=== PATIENT | male | born 1980 | race African-American/Black ===

== ENCOUNTER 2017-12-23 18:04 | Inpatient (IN) | payer OTHER ==
[2017-12-23 18:24] VITALS: BMI 29.5
--- NOTE | 2017-12-23 19:57 | HP ---
CIWA Score - CIWA Score Nausea/Vomitin-No Nausea/No Vomiting Muscle Tremors: 2 Anxiety: 2 Agitation: 3 Paroxysmal Sweats: 2 Orientation: 0-Oriented Tacttile Disturbances: 0-None Auditory Disturbances: 0-None Visual Disturbances: 0-None Headache: 0-None Present CIWA-Ar Total Score: 9 Admission ROS S - HPI Chief Complaint: alcohol withdrawal symptoms Allergies/Adverse Reactions: Allergies Allergy/AdvReac Type Severity Reaction Status Date / Time No Known Allergies Allergy Verified 12/23/17 19:34 History of Present Illness: 37 yo male with hx of alcohol, cocaine and nicotine dependence is her seeking detox. Last detox at [facility] four months ago. PMHX: NV x 2 ( no meds), depression. Denies suicidal / homicidal ideation or hx of suicide attempt. Denies hx of seizures, reports hx of blackouts, last episode yesterday. Longest period of sobriety 3 years while incarcerated. Exam Limitations: No Limitations - Ebola screening Have you been sick,other than usual withdrawal symptoms: No - Review of Systems Constitutional: Loss of Appetite, Changes in sleep (x 3 - 4 days), Unintentional Wgt. Loss (8 lb over a week) EENT: reports: No Symptoms Reported Respiratory: reports: No Symptoms reported Cardiac: reports: No Symptoms Reported GI: reports: Poor Appetite, Poor Fluid Intake : reports: No Symptoms Reported Musculoskeletal: reports: Back Pain Integumentary: reports: No Symptoms Reported Neuro: reports: See HPI Endocrine: reports: Increased Thirst Hematology: reports: No Symptoms Reported Psychiatric: reports: Orientated x3, Depressed Other Systems: Reviewed and Negative Patient History - Patient Medical History Hx Anemia: No Hx Asthma: No Hx Chronic Obstructive Pulmonary Disease (COPD): No Hx Cancer: No Hx Cardiac Disorders: Yes (hx NV 2009 and 2012) Hx Congestive Heart Failure: No Hx Hypertension: No Hx Hypercholesterolemia: No Hx Pacemaker: No HX Cerebrovascular Accident: No Hx Seizures: No Hx Dementia: No Hx Diabetes: No Hx Gastrointestinal Disorders: No Hx Liver Disease: No Hx Genitourinary Disorders: No Hx Sexually Transmitted Disorders: No Hx Renal Disease (ESRD): No Hx Thyroid Disease: No Hx Human Immunodeficiency Virus (HIV): No Hx Hepatitis C: No Hx Depression: Yes Hx Suicide Attempt: No Hx Bipolar Disorder: No Hx Schizophrenia: No - Patient Surgical History Past Surgical History: Yes Hx Neurologic Surgery: No Hx Cataract Extraction: No Hx Cardiac Surgery: No Hx Lung Surgery: No Hx Breast Surgery: No Hx Breast Biopsy: No Hx Abdominal Surgery: No Hx Appendectomy: No Hx Cholecystectomy: No Hx Genitourinary Surgery: No Hx Section: No Hx Orthopedic Surgery: Yes (left knee arthroscopy ) Anesthesia Reaction: No - PPD History Previous Implant?: Yes Documented Results: Negative w/proof Implanted On Prior [facility] Admission?: Yes Date: 09/11/15 PPD to be Administered?: Yes - Smoking Cessation Smoking history: Current every day smoker Have you smoked in the past 12 months: Yes Aproximately how many cigarettes per day: 10 Hx Chewing Tobacco Use: No Initiated information on smoking cessation: Yes 'Breaking Loose' booklet given: 12/23/17 - Substance & Tx. History Hx Alcohol Use: Yes Hx Substance Use: Yes Substance Use Type: Alcohol Hx Substance Use Treatment: Yes ([facility] 4 months ago) - Substances Abused Alcohol Route: Oral Frequency: Daily Amount used: Rum - 2 pints, Beer - (1) 6pk Age of first use: 12 Date of Last Use: 12/23/17 Cocaine Route: Smoking Frequency: Daily Amount used: $100 Age of first use: 30 Date of Last Use: 12/23/17 Family Disease History - Family Disease History Family Disease History: Other: Father (crack / cocaine), Mother (crack/cocaine ) Admission Physical Exam BHS - Vital Signs Vital Signs: Vital Signs - 24 hr 12/23/17 18:22 Temperature 97.6 F Pulse Rate 76 Respiratory 21 Rate Blood Pressure 147/82 - Physical General Appearance: Yes: Nourished, Appropriately Dressed, Irritable HEENTM: Yes: Hearing grossly Normal, Normal ENT Inspection, Normocephalic, Normal Voice, AROLDO, Pharynx Normal, Tm's normal Respiratory: Yes: Chest Non-Tender, Lungs Clear, Normal Breath Sounds, No Respiratory Distress, No Accessory Muscle Use Neck: Yes: Within Normal Limits Breast: Yes: Breast Exam Deferred Cardiology: Yes: Regular Rhythm, Regular Rate, Murmur Abdominal: Yes: Normal Bowel Sounds, Non Tender, Flat, Soft Genitourinary: Yes: Within Normal Limits Back: Yes: Normal Inspection Musculoskeletal: Yes: full range of Motion, Gait Steady, Pelvis Stable, Back pain Extremities: Yes: Normal Capillary Refill, Normal Inspection, Normal Range of Motion, Non-Tender Neurological: Yes: Within Normal Limits Integumentary: Yes: Normal Color, Warm, Moist Lymphatic: Yes: Within Normal Limits - Diagnostic (1) Murmur, cardiac Current Visit: Yes Status: Acute (2) Alcohol dependence with withdrawal Current Visit: Yes Status: Acute Qualifiers: Complication of substance-induced condition: uncomplicated Qualified Code(s ): F10.230 - Alcohol dependence with withdrawal, uncomplicated (3) Back pain Current Visit: Yes Status: Acute Qualifiers: Back pain location: low back pain (4) Nicotine dependence Current Visit: Yes Status: Acute Qualifiers: Nicotine product type: cigarettes (5) Cocaine dependence, uncomplicated Current Visit: Yes Status: Acute (6) Depressed mood Current Visit: Yes Status: Acute Cleared for Admission [facility] - Detox or Rehab [facility] Level of Care: Medically Supervised Detox Regimen/Protocol: Librium [facility] Breath Alcohol Content Breath Alcohol Content: 0 Urine Drug Screen - Results Drug Screen Negative: No Urine Drug Screen Results: NAFISA-Cocaine
[2017-12-23] MEDS ORDERED: P-EPHED 60MG/TRIPROLIDI 2.5MG TABLET PO PRN (20:00)
[2017-12-23] MEDS ORDERED: MAGNESIUM HYDROX 2400MG/30ML ORAL SUSPENSION 30 ML CUP PO PRN (20:00)
[2017-12-23] MEDS ORDERED: ACETAMINOPHEN 325 MG TABLET (FP) PO PRN (20:00)
[2017-12-23] MEDS ORDERED: MENTHOL/PHENOL 1 EACH UD MM PRN (20:00)
[2017-12-23] MEDS ORDERED: MAG HYDROX/AL HYDROX/SIMETH 30 ML UNIT-DOSE CUP PO PRN (20:00)
[2017-12-23] MEDS ORDERED: NICOTINE POLACRILEX 2 MG GUM BC PRN (20:00)
[2017-12-23] MEDS ORDERED: IBUPROFEN 400 MG TABLET (FP) PO PRN (20:00)
[2017-12-23] MEDS ORDERED: guaiFENesin/D-METHORPHAN HB 10 ML UNIT-DOSE CUPS PO PRN (20:00)
[2017-12-23] MEDS ORDERED: hydrOXYzine PAMOATE 50 MG CAPSULE (FP) PO PRN (20:00)
[2017-12-23] MEDS ORDERED: chlordiazePOXIDE HCL 25 MG CAPSULE PO PRN (20:00)
[2017-12-23] MEDS ORDERED: LOPERAMIDE HCL 2 MG CAPSULE PO PRN (20:00)
[2017-12-23] MEDS ORDERED: MAGNESIUM CITRATE 300 ML BOTTLE PO PRN (20:00)
[2017-12-23] MEDS ORDERED: chlordiazePOXIDE HCL 25 MG CAPSULE PO ONE (21:45)
[2017-12-23] MEDS ORDERED: MELATONIN 5 MG TABLETS PO PRN (22:00)
[2017-12-23] MEDS: chlordiazePOXIDE HCL 25 MG CAPSULE PO SCH (23:16)
[2017-12-23] MEDS: THIAMINE HCL 100 MG TABLET (FP) PO SCH (23:17)
[2017-12-24 02:21] LABS: URINE APPEARANCE CLEAR; URINE BILIRUBIN NEGATIVE (<2.0 mg/dL); URINE COLOR YELLOW; URINE GLUCOSE (UA) NEGATIVE (NEGATIVE); URINE KETONE TRACE (NEGATIVE); URINE LEUK ESTERASE NEGATIVE (NEGATIVE); URINE NITRITE NEGATIVE (NEGATIVE); URINE PROTEIN NEGATIVE (NEGATIVE); URINE UROBILINOGEN 4.0 E.U/dl mg/dL (0.2-1.0)
[2017-12-24] MEDS: chlordiazePOXIDE HCL 25 MG CAPSULE PO SCH ×4 (06:20→22:23)
--- NOTE | 2017-12-24 09:01 | EKG ---
Test Reason : Blood Pressure : / mmHG Vent. Rate : 071 BPM Atrial Rate : 071 BPM P-R Int : 174 ms QRS Dur : 094 ms QT Int : 420 ms P-R-T Axes : 056 053 123 degrees QTc Int : 456 ms NORMAL SINUS RHYTHM ABNORMAL ECG NO PREVIOUS ECGS AVAILABLE Confirmed by ROLAN NASCIMENTO MD ([id number]) on 12/24/2017 9:01:26 AM Referred By: Confirmed By:ROLAN NASCIMENTO MD
[2017-12-24 09:54] LABS: HEMATOCRIT 39.3 % (35.4-49); MCH 27.6 pg (25.7-33.7); MEAN CELL VOLUME 83.6 fl (80-96); MEAN PLT VOLUME 8.9 fl (7.5-11.1); PLATELET COUNT 220 K/MM3 (134-434); RDW 15.1 % (11.9-15.9); WHITE BLOOD COUNT 6.8 K/mm3 (4.0-10.0)
[2017-12-24 10:21] LABS: ALBUMIN 3.4 g/dl (3.4-5.0); ANION GAP 8 (8-16); CALCIUM 8.2 mg/dL (8.5-10.1); CHLORIDE 108 mmol/L (98-107); CO2 28 mmol/L (21-32); CREATININE 1.1 mg/dL (0.7-1.3); GLUCOSE,RANDOM 86 mg/dL (74-106); POTASSIUM 4.4 mmol/L (3.5-5.1); SGOT/AST 29 U/L (15-37); SGPT/ALT 30 U/L (12-78); SODIUM 144 mmol/L (136-145)
[2017-12-24 10:28] LABS: ALK PHOS 45 U/L (45-117); BILIRUBIN,TOTAL 0.3 mg/dL (0.2-1.0); BLOOD UREA NITROGEN 14 mg/dL (7-18); TOT PROT 6.5 g/dl (6.4-8.2)
--- NOTE | 2017-12-24 10:40 | PN ---
S CIWA - CIWA Score Nausea/Vomitin-No Nausea/No Vomiting Muscle Tremors: 4-Moderate,w/Arms Extend Anxiety: 4-Mod. Anxious/Guarded Agitation: 4-Moderately Restless Paroxysmal Sweats: 1-Minimal Palms Moist Orientation: 0-Oriented Tacttile Disturbances: 0-None Auditory Disturbances: 0-None Visual Disturbances: 0-None Headache: 0-None Present CIWA-Ar Total Score: 13 BHS Progress Note (SOAP) Subjective: ANXIETY,TREMORS,SWEATS,FATIGUE. Objective: 12/24/17 10:40 Vital Signs 12/24/17 12/24/17 03:30 06:00 Temperature 97.5 F L Pulse Rate 66 Respiratory 18 18 Rate Blood Pressure 133/67 Laboratory Tests 12/24/17 12/24/17 12/24/17 00:33 07:00 07:00 WBC 6.8 D RBC 4.70 Hgb 13.0 Hct 39.3 MCV 83.6 MCH 27.6 MCHC 33.0 RDW 15.1 Plt Count 220 MPV 8.9 Sodium 144 Potassium 4.4 Chloride 108 H Carbon Dioxide 28 Anion Gap 8 BUN 14 Creatinine 1.1 D Creat Clearance w eGFR > 60 Random Glucose 86 Calcium 8.2 L Total Bilirubin 0.3 D AST 29 D ALT 30 Alkaline Phosphatase 45 Total Protein 6.5 Albumin 3.4 Urine Color Yellow Urine Appearance Clear Urine pH 5.0 Ur Specific [place] 1.027 Urine Protein Negative Urine Glucose (UA) Negative Urine Ketones Trace H Urine Blood Negative Urine Nitrite Negative Urine Bilirubin Negative Urine Urobilinogen 4.0 e.u/dl Ur Leukocyte Esterase Negative Assessment: 12/24/17 10:40 WITHDRAWAL SX Plan: CONTINUE DETOX INCREASE PO FLUIDS
[2017-12-24] MEDS: PRENATAL VITAMINS W/ FOLIC ACID TABLET (FP) PO SCH (11:41)
[2017-12-24] MEDS: NICOTINE 14 MG/24 HOURS TOPICAL PATCH TD SCH (11:42)
--- NOTE | 2017-12-24 14:07 | CONSULT ---
[facility] Psychiatric Consult - Data Date of interview: 12/24/17 Admission source: [facility] Identifying data: Patient is a 37 year old male single male, without kids, unemployed (denies receiving financial assistance) and currently homeless. This is one of multiple admissions for patient. Patient admitted to for alcohol and cocaine dependence. Substance Abuse History: - Smoking Cessation. Smoking history: Current every day smoker. Have you smoked in the past 12 months: Yes. Aproximately how many cigarettes per day: 10. Hx Chewing Tobacco Use: No. Initiated information on smoking cessation: Yes. 'Breaking Loose' booklet given: 12/23/17. - Substance & Tx. History. Hx Alcohol Use: Yes. Hx Substance Use: Yes. Substance Use Type : Alcohol. Hx Substance Use Treatment: Yes ([facility] 4 months ago). - Substances Abused. Alcohol. Route: Oral. Frequency: Daily. Amount used: Rum - 2 pints, Beer - (1) 6pk. Age of first use: 12. Date of Last Use: 12/23/17. Cocaine. Route: Smoking. Frequency: Daily. Amount used: $100. Age of first use: 30. Date of Last Use: 12/23/17 Medical History: hx [place] 2009 and 2012, left knee arthroscopy Psychiatric History: Pt. presents as mildly irritable. Patient denies h/o psychiatric hospitalizations. Pt reports h/o OPD for the previous six months. Reports seeing his psychiatrist several times within the previous six months and is prescribed seroquel but is non compliant with his medication regime. Pt. is not interested in accepting psychotropic medications. Pt. denies h/o suicide attempt. Physical/Sexual Abuse/Trauma History: Denies. Mental Status Exam - Mental Status Exam Alert and Oriented to: Time, Place, Person Cognitive Function: Good Patient Appearance: Well Groomed Mood: Withdrawn Patient Behavior: Fatigued, Guarded Speech Pattern: Delayed Voice Loudness: Moderately Soft/Quiet Thought Process: Goal Oriented Hallucinations: Denies Suicidal Ideation: Denies Homicidal Ideation: Denies Insight/Judgement: Poor Sleep: Fair Muscle strength/Tone: Normal Gait/Station: Normal Psychiatric Findings - Problem List ([place] 1, 2,3) (1) Alcohol dependence with withdrawal Current Visit: Yes Status: Acute Qualifiers: Complication of substance-induced condition: uncomplicated Qualified Code(s ): F10.230 - Alcohol dependence with withdrawal, uncomplicated (2) Cocaine dependence, uncomplicated Current Visit: Yes Status: Acute (3) Murmur, cardiac Current Visit: Yes Status: Acute (4) Nicotine dependence Current Visit: Yes Status: Acute Qualifiers: Nicotine product type: cigarettes Substance use status: in withdrawal Qualified Code(s): F17.213 - Nicotine dependence, cigarettes, with withdrawal (5) Back pain Current Visit: Yes Status: Chronic Qualifiers: Back pain location: low back pain (6) Substance induced mood disorder Current Visit: Yes Status: Acute - Initial Treatment Plan Initial Treatment Plan: Psychoeducation provided. Detoxification in progress. Observation.
[2017-12-24] MEDS: THIAMINE HCL 100 MG TABLET (FP) PO SCH (22:22)
[2017-12-25] MEDS: chlordiazePOXIDE HCL 25 MG CAPSULE PO SCH ×3 (06:03→18:29)
[2017-12-25] MEDS: PRENATAL VITAMINS W/ FOLIC ACID TABLET (FP) PO SCH (10:52)
[2017-12-25] MEDS: NICOTINE 14 MG/24 HOURS TOPICAL PATCH TD SCH (10:52)
--- NOTE | 2017-12-25 11:57 | PN ---
S CIWA - CIWA Score Nausea/Vomitin Muscle Tremors: 2 Anxiety: 2 Agitation: 2 Paroxysmal Sweats: 2 Orientation: 0-Oriented Tacttile Disturbances: 0-None Auditory Disturbances: 0-None Visual Disturbances: 1-Very Mild Sensitivity Headache: 2-Mild CIWA-Ar Total Score: 13 S Progress Note (SOAP) Subjective: Muscle aches, sleep interruptions, tremors Objective: 12/25/17 11:56 Vital Signs - 8 hr 12/25/17 12/25/17 06:36 10:36 Temperature 97.5 F L 98.1 F Pulse Rate 63 86 Respiratory 20 16 Rate Blood Pressure 134/73 145/86 Laboratory Last Values WBC 6.8 K/mm3 (4.0-10.0) D 12/24/17 07:00 RBC 4.70 M/mm3 (4.00-5.60) 12/24/17 07:00 Hgb 13.0 GM/dL (11.7-16.9) 12/24/17 07:00 Hct 39.3 % (35.4-49) 12/24/17 07:00 MCV 83.6 fl (80-96) 12/24/17 07:00 MCH 27.6 pg (25.7-33.7) 12/24/17 07:00 MCHC 33.0 g/dl (32.0-35.9) 12/24/17 07:00 RDW 15.1 % (11.9-15.9) 12/24/17 07:00 Plt Count 220 K/MM3 (134-434) 12/24/17 07:00 MPV 8.9 fl (7.5-11.1) 12/24/17 07:00 Sodium 144 mmol/L (136-145) 12/24/17 07:00 Potassium 4.4 mmol/L (3.5-5.1) 12/24/17 07:00 Chloride 108 mmol/L (98-107) H 12/24/17 07:00 Carbon Dioxide 28 mmol/L (21-32) 12/24/17 07:00 Anion Gap 8 (8-16) 12/24/17 07:00 BUN 14 mg/dL (7-18) 12/24/17 07:00 Creatinine 1.1 mg/dL (0.7-1.3) D 12/24/17 07:00 Creat Clearance w eGFR > 60 (>60) 12/24/17 07:00 Random Glucose 86 mg/dL (74-106) 12/24/17 07:00 Calcium 8.2 mg/dL (8.5-10.1) L 12/24/17 07:00 Total Bilirubin 0.3 mg/dL (0.2-1.0) D 12/24/17 07:00 AST 29 U/L (15-37) D 12/24/17 07:00 ALT 30 U/L (12-78) 12/24/17 07:00 Alkaline Phosphatase 45 U/L (45-117) 12/24/17 07:00 Total Protein 6.5 g/dl (6.4-8.2) 12/24/17 07:00 Albumin 3.4 g/dl (3.4-5.0) 12/24/17 07:00 Urine Color Yellow 12/24/17 00:33 Urine Appearance Clear 12/24/17 00:33 Urine pH 5.0 (5.0-8.0) 12/24/17 00:33 Ur Specific [place] 1.027 (1.001-1.035) 12/24/17 00:33 Urine Protein Negative (NEGATIVE) 12/24/17 00:33 Urine Glucose (UA) Negative (NEGATIVE) 12/24/17 00:33 Urine Ketones Trace (NEGATIVE) H 12/24/17 00:33 Urine Blood Negative (NEGATIVE) 12/24/17 00:33 Urine Nitrite Negative (NEGATIVE) 12/24/17 00:33 Urine Bilirubin Negative (<2.0 mg/dL) 12/24/17 00:33 Urine Urobilinogen 4.0 e.u/dl mg/dL (0.2-1.0) 12/24/17 00:33 Ur Leukocyte Esterase Negative (NEGATIVE) 12/24/17 00:33 RPR Titer Nonreactive (NONREACTIVE) 12/24/17 07:00 Labs noted Assessment: 12/25/17 11:57 Withdrawal sx Plan: Continue detox
[2017-12-25] MEDS: THIAMINE HCL 100 MG TABLET (FP) PO SCH (23:08)
[2017-12-25] MEDS: chlordiazePOXIDE 5 MG CAPSULE PO SCH (23:09)
[2017-12-26] MEDS: chlordiazePOXIDE 5 MG CAPSULE PO SCH ×3 (06:47→17:55)
[2017-12-26] MEDS: PRENATAL VITAMINS W/ FOLIC ACID TABLET (FP) PO SCH (11:13)
[2017-12-26] MEDS: NICOTINE 14 MG/24 HOURS TOPICAL PATCH TD SCH (11:13)
--- NOTE | 2017-12-26 13:52 | PN ---
BHS Progress Note (SOAP) Subjective: FEELING BETTER NO TREMOR LESS SWEAT Objective: 12/26/17 13:56 Vital Signs Temperature 98.4 F 12/26/17 13:16 Pulse Rate 71 12/26/17 13:16 Respiratory Rate 18 12/26/17 13:16 Blood Pressure 113/57 12/26/17 13:16 O2 Sat by Pulse Oximetry (%) Laboratory Last Values WBC 6.8 K/mm3 (4.0-10.0) D 12/24/17 07:00 RBC 4.70 M/mm3 (4.00-5.60) 12/24/17 07:00 Hgb 13.0 GM/dL (11.7-16.9) 12/24/17 07:00 Hct 39.3 % (35.4-49) 12/24/17 07:00 MCV 83.6 fl (80-96) 12/24/17 07:00 MCH 27.6 pg (25.7-33.7) 12/24/17 07:00 MCHC 33.0 g/dl (32.0-35.9) 12/24/17 07:00 RDW 15.1 % (11.9-15.9) 12/24/17 07:00 Plt Count 220 K/MM3 (134-434) 12/24/17 07:00 MPV 8.9 fl (7.5-11.1) 12/24/17 07:00 Sodium 144 mmol/L (136-145) 12/24/17 07:00 Potassium 4.4 mmol/L (3.5-5.1) 12/24/17 07:00 Chloride 108 mmol/L (98-107) H 12/24/17 07:00 Carbon Dioxide 28 mmol/L (21-32) 12/24/17 07:00 Anion Gap 8 (8-16) 12/24/17 07:00 BUN 14 mg/dL (7-18) 12/24/17 07:00 Creatinine 1.1 mg/dL (0.7-1.3) D 12/24/17 07:00 Creat Clearance w eGFR > 60 (>60) 12/24/17 07:00 Random Glucose 86 mg/dL (74-106) 12/24/17 07:00 Calcium 8.2 mg/dL (8.5-10.1) L 12/24/17 07:00 Total Bilirubin 0.3 mg/dL (0.2-1.0) D 12/24/17 07:00 AST 29 U/L (15-37) D 12/24/17 07:00 ALT 30 U/L (12-78) 12/24/17 07:00 Alkaline Phosphatase 45 U/L (45-117) 12/24/17 07:00 Total Protein 6.5 g/dl (6.4-8.2) 12/24/17 07:00 Albumin 3.4 g/dl (3.4-5.0) 12/24/17 07:00 Urine Color Yellow 12/24/17 00:33 Urine Appearance Clear 12/24/17 00:33 Urine pH 5.0 (5.0-8.0) 12/24/17 00:33 Ur Specific [place] 1.027 (1.001-1.035) 12/24/17 00:33 Urine Protein Negative (NEGATIVE) 12/24/17 00:33 Urine Glucose (UA) Negative (NEGATIVE) 12/24/17 00:33 Urine Ketones Trace (NEGATIVE) H 12/24/17 00:33 Urine Blood Negative (NEGATIVE) 12/24/17 00:33 Urine Nitrite Negative (NEGATIVE) 12/24/17 00:33 Urine Bilirubin Negative (<2.0 mg/dL) 12/24/17 00:33 Urine Urobilinogen 4.0 e.u/dl mg/dL (0.2-1.0) 12/24/17 00:33 Ur Leukocyte Esterase Negative (NEGATIVE) 12/24/17 00:33 RPR Titer Nonreactive (NONREACTIVE) 12/24/17 07:00 LAB NOTED Assessment: 12/26/17 13:56 MILD WITHDRAWAL SX HIV PAIN MANAGEMENT Plan: MEDICALLY SUPERVISED DETOX DISCUSS ADHERENCE WITH ART AND FOLLOW UP WITH INFECTION DISEASE
[2017-12-27] MEDS: chlordiazePOXIDE HCL 10 MG CAPSULE PO SCH (08:43)
[2017-12-27] MEDS: THIAMINE HCL 100 MG TABLET (FP) PO SCH (08:43)
[2017-12-27 11:19] VITALS: BP 148/75; PULSE 78; TEMP 97.2
--- NOTE | 2017-12-27 12:52 | PN ---
S Progress Note (SOAP) Subjective: ALERT,NO COMPLAINT Objective: 12/27/17 12:51 Vital Signs Temperature 97.2 F L 12/27/17 11:18 Pulse Rate 78 12/27/17 11:18 Respiratory Rate 20 12/27/17 11:18 Blood Pressure 148/75 12/27/17 11:18 O2 Sat by Pulse Oximetry (%) Assessment: 12/27/17 12:51 DETOX COMPLETED,NO WITHDRAWAL SYMPTOM Plan: DISCHARGE TODAY,FOLLOW UP WITH AFTER CARE PROGRAM ARRANGEMENT
--- NOTE | 2017-12-27 12:59 | DS ---
[facility] Detox Discharge Summary Admission Date: 12/23/17 Discharge Date: 12/27/17 - History Present History: Alcohol Dependence, Cocaine Dependence Additional Comments: FOLLOW UP WITH [facility] Pertinent Past History: HIV - Physical Exam Results Vital Signs: Vital Signs Temperature 97.2 F L 12/27/17 11:18 Pulse Rate 78 12/27/17 11:18 Respiratory Rate 20 12/27/17 11:18 Blood Pressure 148/75 12/27/17 11:18 O2 Sat by Pulse Oximetry (%) Pertinent Admission Physical Exam Findings: WITHDRAWAL SIGNS AND SYMPTOM Vital Signs Temperature 97.2 F L 12/27/17 11:18 Pulse Rate 78 12/27/17 11:18 Respiratory Rate 20 12/27/17 11:18 Blood Pressure 148/75 12/27/17 11:18 O2 Sat by Pulse Oximetry (%) Laboratory Last Values WBC 6.8 K/mm3 (4.0-10.0) D 12/24/17 07:00 RBC 4.70 M/mm3 (4.00-5.60) 12/24/17 07:00 Hgb 13.0 GM/dL (11.7-16.9) 12/24/17 07:00 Hct 39.3 % (35.4-49) 12/24/17 07:00 MCV 83.6 fl (80-96) 12/24/17 07:00 MCH 27.6 pg (25.7-33.7) 12/24/17 07:00 MCHC 33.0 g/dl (32.0-35.9) 12/24/17 07:00 RDW 15.1 % (11.9-15.9) 12/24/17 07:00 Plt Count 220 K/MM3 (134-434) 12/24/17 07:00 MPV 8.9 fl (7.5-11.1) 12/24/17 07:00 Sodium 144 mmol/L (136-145) 12/24/17 07:00 Potassium 4.4 mmol/L (3.5-5.1) 12/24/17 07:00 Chloride 108 mmol/L (98-107) H 12/24/17 07:00 Carbon Dioxide 28 mmol/L (21-32) 12/24/17 07:00 Anion Gap 8 (8-16) 12/24/17 07:00 BUN 14 mg/dL (7-18) 12/24/17 07:00 Creatinine 1.1 mg/dL (0.7-1.3) D 12/24/17 07:00 Creat Clearance w eGFR > 60 (>60) 12/24/17 07:00 Random Glucose 86 mg/dL (74-106) 12/24/17 07:00 Calcium 8.2 mg/dL (8.5-10.1) L 12/24/17 07:00 Total Bilirubin 0.3 mg/dL (0.2-1.0) D 12/24/17 07:00 AST 29 U/L (15-37) D 12/24/17 07:00 ALT 30 U/L (12-78) 12/24/17 07:00 Alkaline Phosphatase 45 U/L (45-117) 12/24/17 07:00 Total Protein 6.5 g/dl (6.4-8.2) 12/24/17 07:00 Albumin 3.4 g/dl (3.4-5.0) 12/24/17 07:00 Urine Color Yellow 12/24/17 00:33 Urine Appearance Clear 12/24/17 00:33 Urine pH 5.0 (5.0-8.0) 12/24/17 00:33 Ur Specific [place] 1.027 (1.001-1.035) 12/24/17 00:33 Urine Protein Negative (NEGATIVE) 12/24/17 00:33 Urine Glucose (UA) Negative (NEGATIVE) 12/24/17 00:33 Urine Ketones Trace (NEGATIVE) H 12/24/17 00:33 Urine Blood Negative (NEGATIVE) 12/24/17 00:33 Urine Nitrite Negative (NEGATIVE) 12/24/17 00:33 Urine Bilirubin Negative (<2.0 mg/dL) 12/24/17 00:33 Urine Urobilinogen 4.0 e.u/dl mg/dL (0.2-1.0) 12/24/17 00:33 Ur Leukocyte Esterase Negative (NEGATIVE) 12/24/17 00:33 RPR Titer Nonreactive (NONREACTIVE) 12/24/17 07:00 - Treatment Hospital Course: Detox Protocol Followed, Detoxed Safely, Responded well, Discharged Condition Good, Rehab Referral Accepted Patient has Accepted a Rehab Referral to: [facility] - Medication Discharge Medications: Ambulatory Orders Aspirin [ASA -] 81 mg PO DAILY 09/09/15 Quetiapine Fumarate [Seroquel -] 100 mg PO HS 12/23/17 Atorvastatin Ca [Lipitor] 10 mg PO HS #30 tablet 12/26/17 Dolutegravir Sodium [Tivicay] 50 mg PO DAILY 12/26/17 Emtricitabine/Tenofovir (Tdf) [Truvada 200 mg-300 mg Tablet] 1 each PO DAILY
--- NOTE | 2017-12-27 22:18 | EKG ---
Test Reason : Blood Pressure : / mmHG Vent. Rate : 073 BPM Atrial Rate : 073 BPM P-R Int : 186 ms QRS Dur : 108 ms QT Int : 400 ms P-R-T Axes : 066 059 134 degrees QTc Int : 440 ms NORMAL SINUS RHYTHM ABNORMAL ECG WHEN COMPARED WITH ECG OF 23-DEC-2017 23:03, T WAVE INVERSION MORE EVIDENT IN LATERAL LEADS Confirmed by ADELINE BRADFORD MD ([id number]) on 12/27/2017 10:17:31 PM Referred By: Confirmed By:ADELINE BRADFORD MD
== END 2017-12-27 11:19 | disposition home or self-care (01) | DRG 774 ==
LOC: YASAS 18:04 → Y6N 21:34
PROVIDERS: ADMIT Family Medicine Addiction Medicine; ATTEND Family Medicine Addiction Medicine
PROC: HZ2ZZZZ Detoxification Services for Substance Abuse Treatment (ICD-10-PCS; principal; 2017-12-23)
DX: F10.230 Alcohol dependence with withdrawal, uncomplicated (principal); F14.20 Cocaine dependence, uncomplicated; F17.213 Nicotine dependence, cigarettes, with withdrawal; F19.24 Other psychoactive substance dependence with psychoactive substance-induced mood disorder; F32.9 Major depressive disorder, single episode, unspecified; R01.1 Cardiac murmur, unspecified; M54.5 Low back pain; I25.2 Old myocardial infarction
CPT/HCPCS: 36415; 80053; 81003; 85027; 86593; 93005; 93010

== ENCOUNTER 2018-03-10 14:50 | Inpatient (IN) | payer OTHER ==
[2018-03-10 16:00] VITALS: BMI 27.5
[2018-03-10] MEDS ORDERED: MAGNESIUM HYDROX 2400MG/30ML ORAL SUSPENSION 30 ML CUP PO PRN (19:36)
[2018-03-10] MEDS ORDERED: IBUPROFEN 400 MG TABLET (FP) PO PRN (19:36)
[2018-03-10] MEDS ORDERED: MENTHOL/PHENOL 1 EACH UD MM PRN (19:36)
[2018-03-10] MEDS ORDERED: MAG HYDROX/AL HYDROX/SIMETH 30 ML UNIT-DOSE CUP PO PRN (19:36)
[2018-03-10] MEDS ORDERED: NICOTINE POLACRILEX 4 MG GUM BC PRN (19:36)
[2018-03-10] MEDS ORDERED: MAGNESIUM CITRATE 300 ML BOTTLE PO PRN (19:36)
[2018-03-10] MEDS ORDERED: ACETAMINOPHEN 325 MG TABLET (FP) PO PRN (19:36)
[2018-03-10] MEDS ORDERED: LOPERAMIDE HCL 2 MG CAPSULE PO PRN (19:36)
[2018-03-10] MEDS ORDERED: P-EPHED 60MG/TRIPROLIDI 2.5MG TABLET PO PRN (19:36)
[2018-03-10] MEDS ORDERED: guaiFENesin/D-METHORPHAN HB 10 ML UNIT-DOSE CUPS PO PRN (19:36)
--- NOTE | 2018-03-10 19:36 | HP ---
Admission ROS [facility] Chief Complaint: I am here to go to rehab for treatment Allergies/Adverse Reactions: Allergies Allergy/AdvReac Type Severity Reaction Status Date / Time No Known Allergies Allergy Verified 03/10/18 18:26 History of Present Illness: pt was at [facility] for the past two days. Pt was d/c and now is here for rehab for further tx. Exam Limitations: No Limitations - Ebola screening Have you traveled outside of the country in the last 21 days: No Have you had contact with anyone from an Ebola affected area: No Have you been sick,other than usual withdrawal symptoms: No Do you have a fever: No - Review of Systems Constitutional: Chills, Loss of Appetite, Changes in sleep EENT: reports: No Symptoms Reported Respiratory: reports: No Symptoms reported Cardiac: reports: Syncope GI: reports: Poor Appetite, Poor Fluid Intake : reports: No Symptoms Reported Musculoskeletal: reports: Back Pain, Joint Pain, Muscle Pain Integumentary: reports: No Symptoms Reported Neuro: reports: No Symptoms reported Endocrine: reports: Excessive Sweating, Flushing, Intolerance to Cold, Intolerance to Heat Hematology: reports: No Symptoms Reported Psychiatric: reports: Judgement Intact, Mood/Affect Appropiate, Orientated x3, Agitated, Anxious Other Systems: Reviewed and Negative Patient History - Patient Medical History Hx Anemia: No Hx Asthma: No Hx Chronic Obstructive Pulmonary Disease (COPD): No Hx Cancer: No Hx Cardiac Disorders: Yes (hx DC 2009 and 2012) Hx Congestive Heart Failure: No Hx Hypertension: No Hx Hypercholesterolemia: No Hx Pacemaker: No HX Cerebrovascular Accident: No Hx Seizures: No Hx Dementia: No Hx Diabetes: No Hx Gastrointestinal Disorders: No Hx Liver Disease: No Hx Genitourinary Disorders: No Hx Sexually Transmitted Disorders: No Hx Renal Disease (ESRD): No Hx Thyroid Disease: No Hx Human Immunodeficiency Virus (HIV): Yes Hx Hepatitis C: No Hx Depression: Yes Hx Suicide Attempt: No Hx Bipolar Disorder: No Hx Schizophrenia: No - Patient Surgical History Past Surgical History: Yes Hx Neurologic Surgery: No Hx Cataract Extraction: No Hx Cardiac Surgery: No Hx Lung Surgery: No Hx Breast Surgery: No Hx Breast Biopsy: No Hx Abdominal Surgery: No Hx Appendectomy: No Hx Cholecystectomy: No Hx Genitourinary Surgery: No Hx Section: No Hx Orthopedic Surgery: Yes (left knee arthroscopy ) Anesthesia Reaction: No - PPD History Previous Implant?: Yes Documented Results: Negative w/o proof Date: 12/25/17 PPD to be Administered?: Yes - Reproductive History Patient is a Female of Child Bearing Age (11 -55 yrs old): No - Smoking Cessation Smoking history: Current every day smoker Have you smoked in the past 12 months: Yes Aproximately how many cigarettes per day: 10 Hx Chewing Tobacco Use: No Initiated information on smoking cessation: Yes 'Breaking Loose' booklet given: 03/10/18 - Substance & Tx. History Hx Alcohol Use: Yes Hx Substance Use: Yes Substance Use Type: Alcohol, Cocaine Hx Substance Use Treatment: No Family Disease History - Family Disease History Family Disease History: Other: Father (crack / cocaine), Mother (crack/cocaine ) Admission Physical Exam S - Vital Signs Vital Signs: Vital Signs - 24 hr 03/10/18 15:58 Temperature 97 F L Pulse Rate 83 Respiratory 18 Rate Blood Pressure 123/68 - Physical General Appearance: Yes: Appropriately Dressed, Moderate Distress, Anxious HEENTM: Yes: Hearing grossly Normal, Normal Voice Respiratory: Yes: Chest Non-Tender, Lungs Clear, Normal Breath Sounds, No Respiratory Distress Neck: Yes: No masses,lesions,Nodules Breast: Yes: Within Normal Limits Cardiology: Yes: Regular Rhythm, Regular Rate, S1, S2 Abdominal: Yes: Normal Bowel Sounds, Non Tender, Soft Genitourinary: Yes: Within Normal Limits Back: Yes: Normal Inspection Musculoskeletal: Yes: full range of Motion Extremities: Yes: Normal Capillary Refill, Normal Inspection, Non-Tender, Tremors Neurological: Yes: Fully Oriented, Alert, Normal Response Integumentary: Yes: Normal Color Lymphatic: Yes: Within Normal Limits - Diagnostic (1) Alcohol dependence with withdrawal Current Visit: No Status: Chronic Qualifiers: Complication of substance-induced condition: uncomplicated (2) Cocaine dependence, uncomplicated Current Visit: Yes Status: Chronic (3) Depressed mood Current Visit: Yes Status: Chronic (4) HIV (human immunodeficiency virus infection) Current Visit: No Status: Chronic (5) Nicotine dependence Current Visit: Yes Status: Chronic Qualifiers: Nicotine product type: cigarettes Substance use status: uncomplicated Qualified Code(s): F17.210 - Nicotine dependence, cigarettes, uncomplicated (6) Back pain Current Visit: Yes Status: Chronic Qualifiers: Back pain location: low back pain Back pain laterality: unspecified (7) Degenerative arthritis of knee, bilateral Current Visit: No Status: Chronic Cleared for Admission [facility] - Detox or Rehab [facility] Level of Care: Medically Managed [facility] Breath Alcohol Content Breath Alcohol Content: 0 Urine Drug Screen - Results Drug Screen Negative: No Urine Drug Screen Results: NAFISA-Cocaine, BAR-Barbiturates, BZO-Benzodiazepines Inpatient Rehab Admission - Initial Determination Are CD services needed?: Yes Free of communicable disease: Yes Not in need of hospitalization: Yes - Rehab Admission Criteria Poor recovery environment: Yes Comorbidities: Yes
[2018-03-10] MEDS ORDERED: TUBERCULIN PPD 5 TU/0.1ML VIAL ID ONE (23:04)
[2018-03-10] MEDS: THIAMINE HCL 100 MG TABLET (FP) PO SCH (23:05)
[2018-03-11 00:03] LABS: URINE APPEARANCE CLEAR; URINE BILIRUBIN NEGATIVE (<2.0 mg/dL); URINE COLOR YELLOW; URINE GLUCOSE (UA) NEGATIVE (NEGATIVE); URINE KETONE NEGATIVE (NEGATIVE); URINE LEUK ESTERASE NEGATIVE (NEGATIVE); URINE NITRITE NEGATIVE (NEGATIVE); URINE PROTEIN NEGATIVE (NEGATIVE); URINE UROBILINOGEN NEGATIVE mg/dL (0.2-1.0)
--- NOTE | 2018-03-11 09:27 | EKG ---
Test Reason : Blood Pressure : / mmHG Vent. Rate : 078 BPM Atrial Rate : 078 BPM P-R Int : 176 ms QRS Dur : 096 ms QT Int : 420 ms P-R-T Axes : 062 066 106 degrees QTc Int : 478 ms NORMAL SINUS RHYTHM PROLONGED QT ABNORMAL ECG WHEN COMPARED WITH ECG OF 24-DEC-2017 09:11, T WAVE INVERSION LESS EVIDENT IN LATERAL LEADS Confirmed by ROLAN NASCIMENTO MD ([id number]) on 03/11/2018 9:26:36 AM Referred By: Confirmed By:ROLAN NASCIMENTO MD
[2018-03-11 09:46] LABS: HEMATOCRIT 39.6 % (35.4-49); HEMOGLOBIN 12.7 GM/dL (11.7-16.9); MCH 26.3 pg (25.7-33.7); MCHC 32.2 g/dl (32.0-35.9); MEAN CELL VOLUME 81.6 fl (80-96); MEAN PLT VOLUME 8.7 fl (7.5-11.1); PLATELET COUNT 202 K/MM3 (134-434); RBC 4.85 M/mm3 (4.00-5.60); WHITE BLOOD COUNT 4.9 K/mm3 (4.0-10.0)
[2018-03-11 10:26] LABS: CHLORIDE 106 mmol/L (98-107); POTASSIUM 4.9 mmol/L (3.5-5.1); SODIUM 143 mmol/L (136-145)
[2018-03-11 10:34] LABS: ALBUMIN 3.3 g/dl (3.4-5.0); ALK PHOS 42 U/L (45-117); ANION GAP 5 MMOL/L (8-16); BILIRUBIN,TOTAL 0.2 mg/dL (0.2-1.0); BLOOD UREA NITROGEN 17 mg/dL (7-18); CALCIUM 8.4 mg/dL (8.5-10.1); CO2 32 mmol/L (21-32); CREATININE 1.3 mg/dL (0.7-1.3); GLUCOSE,RANDOM 85 mg/dL (74-106); SGOT/AST 27 U/L (15-37); SGPT/ALT 35 U/L (12-78); TOT PROT 6.4 g/dl (6.4-8.2)
[2018-03-11] MEDS: PRENATAL VITAMINS W/ FOLIC ACID TABLET (FP) PO SCH (10:43)
[2018-03-11] MEDS: NICOTINE 21 MG/24 HOURS TOPICAL PATCH TD SCH (10:43)
[2018-03-11] MEDS: THIAMINE HCL 100 MG TABLET (FP) PO SCH (22:10)
[2018-03-11] MEDS: MELATONIN 5 MG TABLETS PO PRN (22:10)
[2018-03-12] MEDS: PRENATAL VITAMINS W/ FOLIC ACID TABLET (FP) PO SCH (11:00)
[2018-03-12] MEDS: NICOTINE 21 MG/24 HOURS TOPICAL PATCH TD SCH (11:00)
--- NOTE | 2018-03-12 16:53 | HP ---
Psychiatrist Admission - Data Date of interview: 03/12/18 Admission source: Referral from [facility]. Identifying data: Readmission to [address] for this 38 y/o AA male seeking rehabilitation treatment for alcohol and cocaine dependence.Patient is single without dependents,homeless,unemployed and deprived of any source of income. 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 Psychiatric History: Patient denies history of psychiatric hospitalizations,OPD care or sucicide attempts. Physical/Sexual Abuse/Trauma History: Not discussed in this session.Patient endorses 15 years of homelessness. Additional Comment: Discussed in this interview.Details in current [facility] report : Smoking history: Current every day smoker. Have you smoked in the past 12 months: Yes. Aproximately how many cigarettes per day: 10. Hx Chewing Tobacco Use: No. Initiated information on smoking cessation: Yes. 'Breaking Loose' booklet given: 03/10/18. - Substance & Tx. History. Hx Alcohol Use: Yes. Hx Substance Use: Yes. Substance Use Type: Alcohol, Cocaine. Hx Substance Use Treatment: No Vital Signs: Vital Signs - 24 hr 03/12/18 03/12/18 03/12/18 00:30 03:30 07:12 Temperature Pulse Rate Respiratory 18 18 18 Rate Blood Pressure 03/12/18 07:13 Temperature 97.9 F Pulse Rate 70 Respiratory 18 Rate Blood Pressure 104/60 Allergies/Adverse Reactions: Allergies Allergy/AdvReac Type Severity Reaction Status Date / Time No Known Allergies Allergy Verified 03/10/18 18:26 - Substance Abuse/Tx History Hx Alcohol Use: Yes Hx Substance Use: Yes (smokes one pack of cigaretttes daily) Substance Use Type: Alcohol, Cocaine Mental Status Exam - Mental Status Exam Alert and Oriented to: Time, Place, Person Cognitive Function: Good Patient Appearance: Well Groomed (muscular built) Mood: Withdrawn, Hopeful, Irritable Affect: Mood Congruent, Normal Range Patient Behavior: Appropriate, Cooperative Speech Pattern: Clear Voice Loudness: Normal Thought Process: Intact, Goal Oriented Thought Disorder: Not Present Hallucinations: Denies Suicidal Ideation: Denies Homicidal Ideation: Denies Insight/Judgement: Poor Sleep: Well Appetite: Good Muscle strength/Tone: Normal Gait/Station: Normal Psychiatric Findings - Problem List ([place] 1, 2,3) (1) Alcohol dependence Status: Acute Comment: . (2) Cocaine dependence, uncomplicated Status: Acute Comment: . (3) Nicotine dependence Status: Acute Qualifiers: Nicotine product type: cigarettes Substance use status: uncomplicated Qualified Code(s): F17.210 - Nicotine dependence, cigarettes, uncomplicated Comment: . (4) Substance induced mood disorder Status: Acute Comment: . - Initial Treatment Plan Initial Treatment Plan: Psychoeducation.Support.Groups.AA meetings.Observation.
[2018-03-12] MEDS: THIAMINE HCL 100 MG TABLET (FP) PO SCH (21:42)
[2018-03-12] MEDS: MELATONIN 5 MG TABLETS PO PRN (21:42)
[2018-03-13] MEDS: PRENATAL VITAMINS W/ FOLIC ACID TABLET (FP) PO SCH (10:05)
[2018-03-13] MEDS: NICOTINE 21 MG/24 HOURS TOPICAL PATCH TD SCH (10:05)
[2018-03-13] MEDS: THIAMINE HCL 100 MG TABLET (FP) PO SCH (21:45)
[2018-03-13] MEDS: MELATONIN 5 MG TABLETS PO PRN (21:45)
[2018-03-14] MEDS: PRENATAL VITAMINS W/ FOLIC ACID TABLET (FP) PO SCH (10:23)
[2018-03-14] MEDS: NICOTINE 21 MG/24 HOURS TOPICAL PATCH TD SCH (10:23)
[2018-03-14] MEDS: THIAMINE HCL 100 MG TABLET (FP) PO SCH (21:46)
[2018-03-14] MEDS: MELATONIN 5 MG TABLETS PO PRN (21:46)
[2018-03-14] MEDS: hydrOXYzine PAMOATE 50 MG CAPSULE (FP) PO PRN (21:47)
[2018-03-15] MEDS: NICOTINE 21 MG/24 HOURS TOPICAL PATCH TD SCH (10:24)
[2018-03-15] MEDS: PRENATAL VITAMINS W/ FOLIC ACID TABLET (FP) PO SCH (10:24)
[2018-03-15] MEDS: THIAMINE HCL 100 MG TABLET (FP) PO SCH (21:32)
[2018-03-15] MEDS: MELATONIN 5 MG TABLETS PO PRN (21:32)
[2018-03-16] MEDS: NICOTINE 21 MG/24 HOURS TOPICAL PATCH TD SCH (11:08)
[2018-03-16] MEDS: PRENATAL VITAMINS W/ FOLIC ACID TABLET (FP) PO SCH (11:08)
[2018-03-16] MEDS: hydrOXYzine PAMOATE 50 MG CAPSULE (FP) PO PRN (21:45)
[2018-03-16] MEDS: THIAMINE HCL 100 MG TABLET (FP) PO SCH (21:45)
[2018-03-16] MEDS: MELATONIN 5 MG TABLETS PO PRN (21:45)
[2018-03-17] MEDS: PRENATAL VITAMINS W/ FOLIC ACID TABLET (FP) PO SCH (10:25)
[2018-03-17] MEDS: NICOTINE 21 MG/24 HOURS TOPICAL PATCH TD SCH (10:25)
--- NOTE | 2018-03-17 13:15 | PN ---
Psychiatric Progress Note Vital Signs: Vital Signs Period Temp Pulse Resp BP Sys/Frost Pulse Ox Last 24 Hr 97.8 F 65 18-18 114/61 Date of Session: 03/17/18 Chief Complaint:: Discharge Note HPI: Patient addressing Alcohol and Cocaine Dependence comorbid with Nicotine Dependence and Substance-InducedMood Disorder ROS: HIV, H/O Myocardial infarction Current Medications: Active Medications Generic Name Dose Route Start Last Admin Trade Name Freq PRN Reason Stop Dose Admin Acetaminophen 650 mg 03/10/18 19:36 Tylenol - PO Q4H PRN FEVER Al Hydroxide/Mg Hydroxide 30 ml 03/10/18 19:36 Mylanta Oral Suspension - PO Q6H PRN DYSPEPSIA Eucalyptus/Menthol/Phenol/Sorbitol 1 each 03/10/18 19:36 Cepastat Lozenge - MM Q4H PRN SORE THROAT Guaifenesin 10 ml 03/10/18 19:36 Robitussin Dm - PO Q6H PRN COUGH Hydroxyzine Pamoate 50 mg 03/10/18 19:36 03/16/18 21:45 Vistaril - PO 50 mg Q4H PRN Administration AGITATION Ibuprofen 400 mg 03/10/18 19:36 Motrin - PO Q6H PRN Pain level 4-6 Loperamide HCl 4 mg 03/10/18 19:36 Imodium - PO Q6H PRN DIARRHEA Magnesium Citrate 300 ml 03/10/18 19:36 Citroma - PO Q48H PRN CONSTIPATION Magnesium Hydroxide 30 ml 03/10/18 19:36 Milk Of Magnesia - PO DAILY PRN CONSTIPATION Melatonin 5 mg 03/10/18 22:00 03/16/18 21:45 Melatonin PO 5 mg HS PRN Administration INSOMNIA Nicotine 21 mg 03/11/18 10:00 03/17/18 10:25 Nicoderm Patch - TD Not Given DAILY ALFREDO Nicotine Polacrilex 4 mg 03/10/18 19:36 Nicorette Gum - BC Q2H PRN NICOTINE REPLACEMENT RX Multivit/Folic Acid/Iron 1 tab 03/11/18 10:00 03/17/18 10:25 Vitamins (Sjr) - PO 1 tab DAILY ALFREDO Administration Pseudoephedrine/Triprolidine 1 combo 03/10/18 19:36 Actifed - PO TID PRN NASAL CONGESTION Thiamine HCl 100 mg 03/10/18 22:00 03/16/18 21:45 Vitamin B1 - PO 100 mg HS ALFREDO Administration Current Side Effect: No Lab tests ordered: Yes Lab tests reviewed: Yes Provider note:: Patient will complete this program on 03/18/18. he has met his treatment goals and will continue to address his issues in [facility]. Told junior underwriter that from his participation in this program, he has learned the benefit of compliance with his treatment. He is stable for discharge on 03/18/18 Total face to face time:: 35 Mental Status Exam - Mental Status Exam Alert and Oriented to: Time, Place, Person Cognitive Function: Fair Patient Appearance: Well Groomed Mood: Hopeful, Euthymic Affect: Appropriate Patient Behavior: Cooperative Speech Pattern: Clear Voice Loudness: Normal Thought Process: Intact Thought Disorder: Not Present Hallucinations: Denies Suicidal Ideation: Denies Homicidal Ideation: Denies Insight/Judgement: Fair Sleep: Well Appetite: Good Muscle strength/Tone: Normal Gait/Station: Normal Psychiatric Treatment Plan - Problem List (1) Alcohol dependence Current Visit: Yes (2) Cocaine dependence Current Visit: Yes (3) Nicotine dependence Current Visit: Yes Qualifiers: Nicotine product type: cigarettes Substance use status: uncomplicated Qualified Code(s): F17.210 - Nicotine dependence, cigarettes, uncomplicated (4) Substance induced mood disorder Current Visit: Yes (5) Post DE syndrome Current Visit: No (6) HIV (human immunodeficiency virus infection) Current Visit: No Initial treatment plan: Patient will be discharged tomorrow and referred to [facility]
--- NOTE | 2018-03-17 15:55 | PN ---
[facility] Progress Note Note: Vital Signs Temperature 97.8 F 03/17/18 07:22 Pulse Rate 65 03/17/18 07:22 Respiratory Rate 18 03/17/18 07:22 Blood Pressure 114/61 03/17/18 07:22 O2 Sat by Pulse Oximetry (%) Patient medically stable, schedule to complete this program 03/18/18 will follow up with referral at [facility]. Patient to follow up with primary medical provider in 1 - 2 weeks.
[2018-03-17] MEDS: MELATONIN 5 MG TABLETS PO PRN (21:35)
[2018-03-17] MEDS: THIAMINE HCL 100 MG TABLET (FP) PO SCH (21:35)
[2018-03-17] MEDS: hydrOXYzine PAMOATE 50 MG CAPSULE (FP) PO PRN (21:36)
[2018-03-18 07:24] VITALS: BP 114/72; PULSE 72; TEMP 98.3
== END 2018-03-18 08:30 | disposition home or self-care (01) | DRG 772 ==
LOC: YASAS 14:50 → Y5N 17:57
PROVIDERS: ADMIT Psychiatry & Neurology Psychiatry; ATTEND Psychiatry & Neurology Psychiatry
PROC: HZ42ZZZ Group Counseling for Substance Abuse Treatment, Cognitive-Behavioral (ICD-10-PCS; principal; 2018-03-10)
DX: F10.20 Alcohol dependence, uncomplicated (principal); F14.20 Cocaine dependence, uncomplicated; F17.210 Nicotine dependence, cigarettes, uncomplicated; F19.24 Other psychoactive substance dependence with psychoactive substance-induced mood disorder; F32.9 Major depressive disorder, single episode, unspecified; Z21 Asymptomatic human immunodeficiency virus [HIV] infection status; M54.5 Low back pain; I25.2 Old myocardial infarction; M17.0 Bilateral primary osteoarthritis of knee
CPT/HCPCS: 36415; 80053; 81003; 85027; 86593; 87389; 93005; 93010

== ENCOUNTER 2019-05-03 15:30 | Inpatient (IN) | payer OTHER ==
[2019-05-03 16:44] VITALS: BMI 28.5
--- NOTE | 2019-05-03 17:12 | HP ---
CIWA Score - Admission Criteria OASAS Guidelines: Admission for Medically Managed Detox: Requires at least one of the followin. CIWA greater than 12 2. Seizures within the past 24 hours 3. Delirium tremens within the past 24 hours 4. Hallucinations within the past 24 hours 5. Acute intervention needed for co occurring medical disorder 6. Acute intervention needed for co occurring psychiatric disorder 7. Severe withdrawal that cannot be handled at a lower level of care (continued vomiting, continued diarrhea, abnormal vital signs) requiring intravenous medication and/or fluids 8. Admitting History and Physical - Admission Chief Complaint: alcohol and cocaine rehabilitation History of Present Illness: Patient is a 39 yo AA male, homeless, with hx of alcohol and cocaine dependence is here seeking inpatient rehabilitation after completing detox at [facility] with phenobarbital. Denies hx of seizures or blackouts. 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 Denies SI/HI at this time. Limitations to Obtaining History: No Limitations - Smoking History Smoking history: Current every day smoker Have you smoked in the past 12 months: Yes Aproximately how many cigarettes per day: 10 - Alcohol/Substance Use Hx Alcohol Use: Yes Admission ROS S - HPI Allergies/Adverse Reactions: Allergies Allergy/AdvReac Type Severity Reaction Status Date / Time No Known Allergies Allergy Verified 05/03/19 16:33 Exam Limitations: No Limitations - Ebola screening Have you traveled outside of the country in the last 21 days: No Have you had contact with anyone from an Ebola affected area: No - Review of Systems Constitutional: Loss of Appetite, Changes in sleep EENT: reports: No Symptoms Reported Respiratory: reports: No Symptoms reported Cardiac: reports: No Symptoms Reported GI: reports: No Symptoms Reported : reports: No Symptoms Reported Musculoskeletal: reports: No Symptoms Reported Integumentary: reports: No Symptoms Reported Neuro: reports: No Symptoms reported Endocrine: reports: No Symptoms Reported Hematology: reports: No Symptoms Reported Psychiatric: reports: Orientated x3, Depressed Other Systems: Reviewed and Negative Patient History - Patient Medical History Hx Anemia: No Hx Asthma: No Hx Chronic Obstructive Pulmonary Disease (COPD): No Hx Cancer: No Hx Cardiac Disorders: No Hx Congestive Heart Failure: No Hx Hypertension: No Hx Hypercholesterolemia: No Hx Pacemaker: No HX Cerebrovascular Accident: No Hx Seizures: No Hx Dementia: No Hx Diabetes: No Hx Gastrointestinal Disorders: No Hx Liver Disease: No Hx Genitourinary Disorders: No Hx Sexually Transmitted Disorders: No Hx Renal Disease (ESRD): No Hx Thyroid Disease: No Hx Human Immunodeficiency Virus (HIV): Yes Hx Hepatitis C: No Hx Depression: Yes Hx Suicide Attempt: No Hx Bipolar Disorder: No Hx Schizophrenia: No - Patient Surgical History Past Surgical History: Yes Hx Neurologic Surgery: No Hx Cataract Extraction: No Hx Cardiac Surgery: No Hx Lung Surgery: No Hx Breast Surgery: No Hx Breast Biopsy: No Hx Abdominal Surgery: No Hx Appendectomy: No Hx Cholecystectomy: No Hx Genitourinary Surgery: No Hx Section: No Hx Orthopedic Surgery: Yes (left knee arthroscopy ) Anesthesia Reaction: No - PPD History Previous Implant?: No Documented Results: Negative w/proof Date: 03/12/18 PPD to be Administered?: Yes - Smoking Cessation Smoking history: Current every day smoker Have you smoked in the past 12 months: Yes Aproximately how many cigarettes per day: 10 Hx Chewing Tobacco Use: No Initiated information on smoking cessation: Yes 'Breaking Loose' booklet given: 05/03/19 - Substance & Tx. History Hx Alcohol Use: Yes Hx Substance Use: Yes Substance Use Type: Alcohol Hx Substance Use Treatment: Yes (04/29/19 - 05/03/19 [facility] ) - Substances abused Alcohol Substance route: Oral Frequency: Daily Amount used: two x 6 packs of beer and 2 pints. Age of first use: 12 Date of last use: 04/29/19 Admission Physical Exam [facility] - Vital Signs Vital Signs: Vital Signs - 24 hr 05/03/19 05/03/19 16:32 16:54 Temperature 97.6 F 97.6 F Pulse Rate 97 H 97 H Respiratory 16 16 Rate Blood Pressure 114/71 114/71 - Physical General Appearance: Yes: Appropriately Dressed, Irritable, Anxious HEENTM: Yes: EOMI, Hearing grossly Normal, Normal ENT Inspection, Normocephalic , Normal Voice, AROLDO, Pharynx Normal, Tm's normal Respiratory: Yes: Chest Non-Tender, Lungs Clear, Normal Breath Sounds, No Respiratory Distress, No Accessory Muscle Use Neck: Yes: Within Normal Limits Breast: Yes: Breast Exam Deferred Cardiology: Yes: Regular Rhythm, Regular Rate, Murmur Abdominal: Yes: Normal Bowel Sounds, Non Tender, Flat, Soft Genitourinary: Yes: Within Normal Limits Back: Yes: Normal Inspection Musculoskeletal: Yes: full range of Motion, Gait Steady, Pelvis Stable Extremities: Yes: Normal Capillary Refill, Normal Inspection, Normal Range of Motion, Non-Tender Neurological: Yes: stringing machine tender II-XII NML intact, Fully Oriented, Alert, Motor Strength 5/5, Depressed Affect (flat affect) Integumentary: Yes: Normal Color, Dry, Warm Lymphatic: Yes: Within Normal Limits - Diagnostic (1) Alcohol dependence Current Visit: Yes Status: Acute Comment: . (2) Cocaine dependence, uncomplicated Current Visit: Yes Status: Acute Comment: . (3) Murmur, cardiac Current Visit: Yes Status: Chronic (4) Nicotine dependence Current Visit: Yes Status: Acute Qualifiers: Nicotine product type: cigarettes Substance use status: uncomplicated Qualified Code(s): F17.210 - Nicotine dependence, cigarettes, uncomplicated Comment: . Breathalyzer - Breathalyzer Breathalyzer: 0 Urine Drug Screen - Test Device Lot number: [id number] Expiration date: 01/01/21 - Control Is test valid?: Yes - Results Urine drug screen results: NAFISA-Cocaine, BAR-Barbiturates Inpatient Rehab Admission - Rehab Decision to Admit Inpatient rehab admission?: Yes - Initial Determination Are CD services needed?: Yes Free of communicable disease: Yes Not in need of hospitalization: Yes - Rehab Admission Criteria Previous failed treatment: Yes Poor recovery environment: Yes Comorbidities: Yes Lacks judgement: Yes Patient is meeting Inpatient Rehab admission criteria:: Yes
[2019-05-03] MEDS ORDERED: hydrOXYzine PAMOATE 25 MG CAPSULE (FP) PO PRN (17:14)
[2019-05-03] MEDS ORDERED: MAGNESIUM CITRATE 300 ML BOTTLE PO PRN (17:14)
[2019-05-03] MEDS ORDERED: MENTHOL/PHENOL 1 EACH UD MM PRN (17:14)
[2019-05-03] MEDS ORDERED: P-EPHED 60MG/TRIPROLIDI 2.5MG TABLET PO PRN (17:14)
[2019-05-03] MEDS ORDERED: LOPERAMIDE HCL 2 MG CAPSULE PO PRN (17:14)
[2019-05-03] MEDS ORDERED: NICOTINE POLACRILEX 2 MG GUM BC PRN (17:14)
[2019-05-03] MEDS ORDERED: guaiFENesin 200 MG/10 ML 10 ML UNIT-DOSE CUPS PO PRN (17:14)
[2019-05-03] MEDS ORDERED: ACETAMINOPHEN 325 MG TABLET (FP) PO PRN (17:14)
[2019-05-03] MEDS ORDERED: MAG HYDROX/AL HYDROX/SIMETH 30 ML UNIT-DOSE CUP PO PRN (17:14)
[2019-05-03] MEDS ORDERED: MAGNESIUM HYDROX 2400MG/30ML ORAL SUSPENSION 30 ML CUP PO PRN (17:14)
[2019-05-03] MEDS ORDERED: IBUPROFEN 400 MG TABLET (FP) PO PRN (17:14)
[2019-05-03] MEDS: THIAMINE HCL 100 MG TABLET (FP) PO SCH (21:20)
[2019-05-03] MEDS ORDERED: QUEtiapine FUMARATE 100 MG TABLET (FP) PO ONE (22:00)
--- NOTE | 2019-05-04 09:10 | CONSULT ---
[facility] Psych[facility] Consult - Data Date of interview: 05/04/19 [facility] Identifying data: Patient is a 39 year old single black male, without children, unemployed, homeless, and is not receiving any financial assistance. This is one of multiple admissions for patient. Patient admitted to for alcohol dependence. Substance Abuse History: Smoking Cessation. Smoking history: Current every day smoker. Have you smoked in the past 12 months: Yes. Aproximately how many cigarettes per day: 10. Hx Chewing Tobacco Use: No. Initiated information on smoking cessation: Yes. 'Breaking Loose' booklet given: 05/03/19. - Substance & Tx. History. Hx Alcohol Use: Yes. Hx Substance Use: Yes. Substance Use Type : Alcohol. Hx Substance Use Treatment: Yes (04/29/19 - 05/03/19 [facility] ). - Substances abused. Alcohol. Substance route: Oral. Frequency: Daily. Amount used: two x 6 packs of beer and 2 pints. Age of first use: 12. Date of last use: 04/29/19 Medical History: HIV, left knee arthroscopy Psychiatric History: Patient denies history of psychiatric hospitalizations, outpatient care, and suicide attempt. Mr. Morales reports only seeing a psychiatrist when admitted to detox/rehab facilites. States that before admission to rehab he was receiving detox treatment at [facility] and was prescribed seroquel 100mg for insomnia. At present patient reports difficulty sleeping. Physical/Sexual Abuse/Trauma History: denies. Additional Comment: Reports being homeless for 15 years. Mental Status Exam - Mental Status Exam Alert and Oriented to: Time, Place, Person Cognitive Function: Good Patient Appearance: Well Groomed Mood: Withdrawn Affect: Mood Congruent Patient Behavior: Fatigued, Cooperative Speech Pattern: Clear Voice Loudness: Normal Thought Process: Goal Oriented Thought Disorder: Present Hallucinations: Denies Suicidal Ideation: Denies Homicidal Ideation: Denies Insight/Judgement: Poor Sleep: Poorly Appetite: Fair Muscle strength/Tone: Normal Gait/Station: Normal Psychiatric Findings - Problem List ([place] 1, 2,3) (1) Substance-induced sleep disorder Current Visit: Yes Status: Acute (2) Alcohol dependence Current Visit: Yes Status: Acute Comment: . (3) Cocaine dependence, uncomplicated Current Visit: Yes Status: Acute Comment: . (4) Nicotine dependence Current Visit: Yes Status: Acute Qualifiers: Nicotine product type: cigarettes Substance use status: uncomplicated Qualified Code(s): F17.210 - Nicotine dependence, cigarettes, uncomplicated Comment: . (5) Substance induced mood disorder Current Visit: Yes Status: Acute Comment: . - Initial Treatment Plan Initial Treatment Plan: Psychoeducation provided. Rerhab in progress. Will order Seroquel 100mg HS. Benefits and side effects discussed. Verbal consent given.
[2019-05-04 10:12] LABS: HEMATOCRIT 42.5 % (35.4-49); HEMOGLOBIN 13.8 GM/dL (11.7-16.9); MCH 26.4 pg (25.7-33.7); MCHC 32.4 g/dl (32.0-35.9); MEAN CELL VOLUME 81.4 fl (80-96); MEAN PLT VOLUME 8.2 fl (7.5-11.1); PLATELET COUNT 409 K/MM3 (134-434); RBC 5.22 M/mm3 (4.00-5.60); RDW 14.3 % (11.9-15.9); WHITE BLOOD COUNT 6.4 K/mm3 (4.0-10.0)
[2019-05-04 11:11] LABS: ALBUMIN 3.6 g/dl (3.4-5.0); BILIRUBIN,TOTAL 0.4 mg/dL (0.2-1); BLOOD UREA NITROGEN 16.8 mg/dL (7-18); CALCIUM 9.2 mg/dL (8.5-10.1); CREATININE 1.3 mg/dL (0.55-1.3); POTASSIUM 5.5 mmol/L (3.5-5.1); TOT PROT 7.1 g/dl (6.4-8.2)
[2019-05-04] MEDS: PRENATAL VITAMINS W/ FOLIC ACID TABLET (FP) PO SCH (11:19)
[2019-05-04] MEDS: NICOTINE 14 MG/24 HOURS TOPICAL PATCH TD SCH (11:20)
[2019-05-04] MEDS: THIAMINE HCL 100 MG TABLET (FP) PO SCH (21:28)
[2019-05-04] MEDS: QUEtiapine FUMARATE 100 MG TABLET (FP) PO SCH (21:28)
[2019-05-05] MEDS: NICOTINE 14 MG/24 HOURS TOPICAL PATCH TD SCH (10:16)
[2019-05-05] MEDS: PRENATAL VITAMINS W/ FOLIC ACID TABLET (FP) PO SCH (10:16)
[2019-05-05 16:34] LABS: URINE APPEARANCE CLEAR; URINE BILIRUBIN NEGATIVE (NEGATIVE); URINE COLOR YELLOW; URINE GLUCOSE (UA) NEGATIVE (NEGATIVE); URINE KETONE NEGATIVE (NEGATIVE); URINE LEUK ESTERASE NEGATIVE (NEGATIVE); URINE NITRITE NEGATIVE (NEGATIVE); URINE PROTEIN NEGATIVE (NEGATIVE); URINE UROBILINOGEN 0.2 mg/dL (0.2-1.0)
[2019-05-05] MEDS: THIAMINE HCL 100 MG TABLET (FP) PO SCH (21:17)
[2019-05-05] MEDS: QUEtiapine FUMARATE 100 MG TABLET (FP) PO SCH (21:17)
[2019-05-06] MEDS: NICOTINE 14 MG/24 HOURS TOPICAL PATCH TD SCH (10:21)
[2019-05-06] MEDS: PRENATAL VITAMINS W/ FOLIC ACID TABLET (FP) PO SCH (10:21)
[2019-05-06] MEDS: THIAMINE HCL 100 MG TABLET (FP) PO SCH (21:18)
[2019-05-06] MEDS: QUEtiapine FUMARATE 100 MG TABLET (FP) PO SCH (21:18)
[2019-05-06] MEDS: MELATONIN 5 MG TABLETS PO PRN (21:19)
[2019-05-07] MEDS: NICOTINE 14 MG/24 HOURS TOPICAL PATCH TD SCH (09:46)
[2019-05-07] MEDS: PRENATAL VITAMINS W/ FOLIC ACID TABLET (FP) PO SCH (09:46)
[2019-05-07] MEDS: THIAMINE HCL 100 MG TABLET (FP) PO SCH (21:22)
[2019-05-07] MEDS: QUEtiapine FUMARATE 100 MG TABLET (FP) PO SCH (21:22)
[2019-05-07] MEDS: MELATONIN 5 MG TABLETS PO PRN (21:22)
[2019-05-08] MEDS: NICOTINE 14 MG/24 HOURS TOPICAL PATCH TD SCH (10:34)
[2019-05-08] MEDS: PRENATAL VITAMINS W/ FOLIC ACID TABLET (FP) PO SCH (10:35)
[2019-05-08] MEDS: MELATONIN 5 MG TABLETS PO PRN (21:15)
[2019-05-08] MEDS: QUEtiapine FUMARATE 100 MG TABLET (FP) PO SCH (21:15)
[2019-05-08] MEDS: THIAMINE HCL 100 MG TABLET (FP) PO SCH (21:16)
[2019-05-09] MEDS: PRENATAL VITAMINS W/ FOLIC ACID TABLET (FP) PO SCH (10:34)
[2019-05-09] MEDS: NICOTINE 14 MG/24 HOURS TOPICAL PATCH TD SCH (10:34)
[2019-05-09] MEDS: QUEtiapine FUMARATE 100 MG TABLET (FP) PO SCH (21:21)
[2019-05-09] MEDS: MELATONIN 5 MG TABLETS PO PRN (21:22)
[2019-05-09] MEDS: THIAMINE HCL 100 MG TABLET (FP) PO SCH (21:22)
[2019-05-10] MEDS: PRENATAL VITAMINS W/ FOLIC ACID TABLET (FP) PO SCH (10:17)
[2019-05-10] MEDS: NICOTINE 14 MG/24 HOURS TOPICAL PATCH TD SCH (10:17)
[2019-05-10] MEDS: QUEtiapine FUMARATE 100 MG TABLET (FP) PO SCH (21:22)
[2019-05-10] MEDS: THIAMINE HCL 100 MG TABLET (FP) PO SCH (21:22)
[2019-05-10] MEDS: MELATONIN 5 MG TABLETS PO PRN (21:22)
[2019-05-11] MEDS: PRENATAL VITAMINS W/ FOLIC ACID TABLET (FP) PO SCH (12:40)
[2019-05-11] MEDS: NICOTINE 14 MG/24 HOURS TOPICAL PATCH TD SCH (12:40)
[2019-05-11] MEDS: QUEtiapine FUMARATE 100 MG TABLET (FP) PO SCH (21:24)
[2019-05-11] MEDS: MELATONIN 5 MG TABLETS PO PRN (21:24)
[2019-05-11] MEDS: THIAMINE HCL 100 MG TABLET (FP) PO SCH (21:25)
[2019-05-12] MEDS: NICOTINE 14 MG/24 HOURS TOPICAL PATCH TD SCH (14:18)
[2019-05-12] MEDS: PRENATAL VITAMINS W/ FOLIC ACID TABLET (FP) PO SCH (14:18)
[2019-05-12] MEDS: THIAMINE HCL 100 MG TABLET (FP) PO SCH (21:32)
[2019-05-12] MEDS: QUEtiapine FUMARATE 100 MG TABLET (FP) PO SCH (21:32)
[2019-05-12] MEDS: MELATONIN 5 MG TABLETS PO PRN (21:32)
[2019-05-13] MEDS: PRENATAL VITAMINS W/ FOLIC ACID TABLET (FP) PO SCH (11:00)
[2019-05-13] MEDS: NICOTINE 14 MG/24 HOURS TOPICAL PATCH TD SCH (11:00)
[2019-05-13] MEDS: QUEtiapine FUMARATE 100 MG TABLET (FP) PO SCH (21:24)
[2019-05-13] MEDS: MELATONIN 5 MG TABLETS PO PRN (21:24)
[2019-05-13] MEDS: THIAMINE HCL 100 MG TABLET (FP) PO SCH (21:25)
[2019-05-14 07:58] VITALS: TEMP 97.4
[2019-05-14] MEDS: PRENATAL VITAMINS W/ FOLIC ACID TABLET (FP) PO SCH (11:08)
[2019-05-14] MEDS: NICOTINE 14 MG/24 HOURS TOPICAL PATCH TD SCH (11:08)
--- NOTE | 2019-05-14 17:42 | PN ---
S Progress Note Note: Psychiatric nurse practitioner note: Patient scheduled for discharge tomorrow morning. A 30 day prescription of Seroquel 100mg HS was electronically sent to [facility], [address] [place] [address].
[2019-05-14] MEDS: THIAMINE HCL 100 MG TABLET (FP) PO SCH (21:35)
[2019-05-14] MEDS: MELATONIN 5 MG TABLETS PO PRN (21:36)
[2019-05-14] MEDS: QUEtiapine FUMARATE 100 MG TABLET (FP) PO SCH (21:36)
[2019-05-14] MEDS ORDERED: QUEtiapine FUMARATE 100 MG TABLET (FP) PO SCH (22:00)
[2019-05-15 07:14] VITALS: BP 133/71; PULSE 77
--- NOTE | 2019-05-15 08:43 | DS ---
[facility] Rehab Discharge Summary - [facility] Rehab Discharge Summary Admission Date: 05/03/19 Discharge Date: 05/15/19 - History Present History: Alcohol dependence, Cocaine dependence Additional Comments: Pt is a 39 y/o male who was admitted to rehab for RIVER and scheduled to discharge today after completion of rehab.Pt discharged earlier today and was seen by night provider Vicky Resendez NP on the unit per night nurse. Pt was given his discharge package with CD referral for follow up treatment. Pertinent Past History: HIV+ DJD-Arthritis knees,bilateral Back pain Mood disorder - Discharge Physical Exam Vital Signs: Vital Signs Temperature 97.4 F L 05/15/19 07:13 Pulse Rate 77 05/15/19 07:13 Respiratory Rate 18 05/15/19 07:13 Blood Pressure 133/71 05/15/19 07:13 O2 Sat by Pulse Oximetry (%) Pt left before shift change. Pertinent Admission Physical Exam Findings: Laboratory Tests 05/04/19 05/04/19 05/04/19 08:00 08:00 08:00 WBC 6.4 RBC 5.22 Hgb 13.8 Hct 42.5 MCV 81.4 MCH 26.4 MCHC 32.4 RDW 14.3 Plt Count 409 D MPV 8.2 Sodium 139 Potassium 5.5 H Chloride 101 Carbon Dioxide 30 Anion Gap 8 BUN 16.8 Creatinine 1.3 Est GFR (CKD-EPI)AfAm 79.66 Est GFR (CKD-EPI)NonAf 68.73 Random Glucose 82 Calcium 9.2 Total Bilirubin 0.4 AST 33 ALT 55 Alkaline Phosphatase 44 L Total Protein 7.1 Albumin 3.6 Urine Color Urine Appearance Urine pH Ur Specific [place] Urine Protein Urine Glucose (UA) Urine Ketones Urine Blood Urine Nitrite Urine Bilirubin Urine Urobilinogen Ur Leukocyte Esterase RPR Titer Nonreactive 05/05/19 10:55 WBC RBC Hgb Hct MCV MCH MCHC RDW Plt Count MPV Sodium Potassium Chloride Carbon Dioxide Anion Gap BUN Creatinine Est GFR (CKD-EPI)AfAm Est GFR (CKD-EPI)NonAf Random Glucose Calcium Total Bilirubin AST ALT Alkaline Phosphatase Total Protein Albumin Urine Color Yellow Urine Appearance Clear Urine pH 8.0 D Ur Specific [place] 1.016 Urine Protein Negative Urine Glucose (UA) Negative Urine Ketones Negative Urine Blood Negative Urine Nitrite Negative Urine Bilirubin Negative Urine Urobilinogen 0.2 Ur Leukocyte Esterase Negative RPR Titer - Treatment Discharge Condition: Discharge condition good Hospital Course: rehabilitated safely and responded well CD aftercare referral accepted - Medication-Assisted Treatment (MAT) Medication-Assisted Treatment (MAT): No - Discharge Instructions Diet, activity, other medical instructions: Diet:Regular Activity: oob ambulates with steady gait Other medical instructions:Follow up with PCP for medical management within 1-2 weeks after discharge. Follow up with CD aftercare referral as recommeded and scheduled. - Diagnosis (1) Alcohol dependence Status: Chronic Qualifiers: Substance use status: uncomplicated Qualified Code(s): F10.20 - Alcohol dependence, uncomplicated (2) Cocaine dependence Status: Chronic Qualifiers: Substance use status: uncomplicated Qualified Code(s): F14.20 - Cocaine dependence, uncomplicated (3) Nicotine dependence Status: Chronic Qualifiers: Nicotine product type: cigarettes Substance use status: uncomplicated Qualified Code(s): F17.210 - Nicotine dependence, cigarettes, uncomplicated (4) Degenerative arthritis of knee, bilateral Status: Chronic (5) HIV (human immunodeficiency virus infection) Status: Chronic - Follow-up Referral Minutes to complete discharge: 15 - AMA Did Patient Leave Against Medical Advice: No
== END 2019-05-15 06:45 | disposition home or self-care (01) | DRG 772 ==
LOC: YASAS 15:30 → Y5N 17:51
PROVIDERS: ADMIT Neuromusculoskeletal Medicine & OMM; ATTEND Neuromusculoskeletal Medicine & OMM
PROC: HZ42ZZZ Group Counseling for Substance Abuse Treatment, Cognitive-Behavioral (ICD-10-PCS; principal; 2019-05-03)
DX: F10.20 Alcohol dependence, uncomplicated (principal); F14.20 Cocaine dependence, uncomplicated; F17.210 Nicotine dependence, cigarettes, uncomplicated; F19.282 Other psychoactive substance dependence with psychoactive substance-induced sleep disorder; F19.24 Other psychoactive substance dependence with psychoactive substance-induced mood disorder; Z21 Asymptomatic human immunodeficiency virus [HIV] infection status; M54.5 Low back pain; M17.0 Bilateral primary osteoarthritis of knee; Z59.0 Homelessness
CPT/HCPCS: 36415; 80053; 81003; 85027; 86593

== ENCOUNTER 2019-06-08 16:20 | Inpatient (IN) | payer OTHER ==
[2019-06-08 18:28] VITALS: BMI 28.0
--- NOTE | 2019-06-08 21:20 | HP ---
CIWA Score Nausea/Vomitin-No Nausea/No Vomiting Muscle Tremors: 2 Anxiety: 3 Agitation: 3 Paroxysmal Sweats: 3 Orientation: 1-Uncertain about Date Tacttile Disturbances: 0-None Auditory Disturbances: 0-None Visual Disturbances: 0-None Headache: 3-Moderate CIWA-Ar Total Score: 15 - Admission Criteria OASAS Guidelines: Admission for Medically Managed Detox: Requires at least one of the followin. CIWA greater than 12 2. Seizures within the past 24 hours 3. Delirium tremens within the past 24 hours 4. Hallucinations within the past 24 hours 5. Acute intervention needed for co occurring medical disorder 6. Acute intervention needed for co occurring psychiatric disorder 7. Severe withdrawal that cannot be handled at a lower level of care (continued vomiting, continued diarrhea, abnormal vital signs) requiring intravenous medication and/or fluids 8. Admitting History and Physical - Smoking History Smoking history: Current every day smoker Have you smoked in the past 12 months: Yes Aproximately how many cigarettes per day: 10 - Alcohol/Substance Use Hx Alcohol Use: Yes Admission ROS [facility] Chief Complaint: Seeking admission to detox from Alcohol and Benzo. Allergies/Adverse Reactions: Allergies Allergy/AdvReac Type Severity Reaction Status Date / Time No Known Allergies Allergy Verified 06/08/19 18:21 History of Present Illness: 39 years old ,male with a long history of alcohol and Xanax dependence is seeking admission to detox. Patient has been admitted to this facility a couple of times and reports insignificant period of sobriety. He has medical history of HIV + and depression. He denies suicidal ideation at this time. Exam Limitations: No Limitations - Ebola screening Have you traveled outside of the country in the last 21 days: No (N) Have you had contact with anyone from an Ebola affected area: No Do you have a fever: No - Review of Systems Constitutional: Chills, Night Sweats, Changes in sleep EENT: reports: Nose Congestion Respiratory: reports: No Symptoms reported Cardiac: reports: No Symptoms Reported GI: reports: Poor Appetite, Poor Fluid Intake, Vomiting, Abdominal cramping : reports: No Symptoms Reported Musculoskeletal: reports: Back Pain, Joint Pain, Muscle Pain Integumentary: reports: No Symptoms Reported Neuro: reports: Headache Endocrine: reports: No Symptoms Reported Hematology: reports: No Symptoms Reported Psychiatric: reports: Mood/Affect Appropiate, Anxious Other Systems: Reviewed and Negative Patient History - Patient Medical History Hx Anemia: No Hx Asthma: No Hx Chronic Obstructive Pulmonary Disease (COPD): No Hx Cancer: No Hx Cardiac Disorders: No Hx Congestive Heart Failure: No Hx Hypertension: No Hx Hypercholesterolemia: No Hx Pacemaker: No HX Cerebrovascular Accident: No Hx Seizures: No Hx Dementia: No Hx Diabetes: No Hx Gastrointestinal Disorders: No Hx Liver Disease: No Hx Genitourinary Disorders: No Hx Sexually Transmitted Disorders: No Hx Renal Disease (ESRD): No Hx Thyroid Disease: No Hx Human Immunodeficiency Virus (HIV): Yes Hx Hepatitis C: No Hx Depression: Yes Hx Suicide Attempt: No Hx Bipolar Disorder: No Hx Schizophrenia: No - Patient Surgical History Past Surgical History: Yes Hx Neurologic Surgery: No Hx Cataract Extraction: No Hx Cardiac Surgery: No Hx Lung Surgery: No Hx Abdominal Surgery: No Hx Appendectomy: No Hx Cholecystectomy: No Hx Genitourinary Surgery: No Hx Section: No Hx Orthopedic Surgery: Yes (left knee arthroscopy ) Anesthesia Reaction: No - PPD History Previous Implant?: Yes Documented Results: Negative w/o proof Implanted On Prior [facility] Admission?: Yes Date: 05/05/19 PPD to be Administered?: No - Reproductive History Patient is a Female of Child Bearing Age (11 -55 yrs old): No (male) - Smoking Cessation Smoking history: Current every day smoker Have you smoked in the past 12 months: Yes Aproximately how many cigarettes per day: 10 Hx Chewing Tobacco Use: No Initiated information on smoking cessation: Yes 'Breaking Loose' booklet given: 06/08/19 - Substance & Tx. History Hx Alcohol Use: Yes Hx Substance Use: Yes Substance Use Type: Alcohol Hx Substance Use Treatment: Yes ([facility]) - Substances abused Alcohol Substance route: Oral Frequency: Daily Amount used: two x 6 packs of beer and 2 pints LIQUOR. Age of first use: 12 Date of last use: 06/07/19 Alprazolam (Xanax) Substance route: Oral Frequency: Daily Amount used: 4MG /DAY Age of first use: 38 Date of last use: 06/08/19 Admission Physical Exam BHS - Vital Signs Vital Signs: Vital Signs - 24 hr 06/08/19 06/08/19 18:22 20:45 Temperature 97.8 F 97.8 F Pulse Rate 95 H 95 H Respiratory 17 17 Rate Blood Pressure 146/82 146/82 - Physical General Appearance: Yes: Within Normal Limits, Moderate Distress HEENTM: Yes: Within Normal Limits Respiratory: Yes: Lungs Clear, Normal Breath Sounds, No Respiratory Distress Neck: Yes: Supple Breast: Yes: Breast Exam Deferred Cardiology: Yes: Within Normal Limits Abdominal: Yes: Within Normal Limits Genitourinary: Yes: Within Normal Limits Musculoskeletal: Yes: Within Normal Limits Extremities: Yes: Tremors Neurological: Yes: Alert, Normal Mood/Affect Integumentary: Yes: Warm Lymphatic: Yes: Within Normal Limits - Diagnostic (1) Benzodiazepine dependence Current Visit: Yes Status: Chronic (2) Cocaine dependence, uncomplicated Current Visit: Yes Status: Chronic Comment: . (3) Alcohol dependence with withdrawal Current Visit: No Status: Chronic Qualifiers: Complication of substance-induced condition: uncomplicated Qualified Code(s ): F10.230 - Alcohol dependence with withdrawal, uncomplicated (4) Cocaine dependence Current Visit: Yes Status: Chronic Qualifiers: Substance use status: uncomplicated Qualified Code(s): F14.20 - Cocaine dependence, uncomplicated (5) HIV (human immunodeficiency virus infection) Current Visit: Yes Status: Chronic (6) Nicotine dependence Current Visit: Yes Status: Chronic Qualifiers: Nicotine product type: cigarettes Substance use status: uncomplicated Qualified Code(s): F17.210 - Nicotine dependence, cigarettes, uncomplicated Comment: . Cleared for Admission S - Detox or Rehab [facility] Level of Care: Medically Managed Detox Regimen/Protocol: Valium Breathalyzer - Breathalyzer Breathalyzer: 0 Urine Drug Screen - Test Device Lot number: [id number] Expiration date: 02/01/21 - Control Is test valid?: Yes - Results Urine drug screen results: NAFISA-Cocaine, BZO-Benzodiazepines Inpatient Rehab Admission - Rehab Decision to Admit Inpatient rehab admission?: No
--- NOTE | 2019-06-08 21:51 | HP ---
CIWA Score Nausea/Vomitin-No Nausea/No Vomiting Muscle Tremors: 2 Anxiety: 3 Agitation: 3 Paroxysmal Sweats: 3 Orientation: 1-Uncertain about Date Tacttile Disturbances: 0-None Auditory Disturbances: 0-None Visual Disturbances: 0-None Headache: 3-Moderate CIWA-Ar Total Score: 15 - Admission Criteria OASAS Guidelines: Admission for Medically Managed Detox: Requires at least one of the followin. CIWA greater than 12 2. Seizures within the past 24 hours 3. Delirium tremens within the past 24 hours 4. Hallucinations within the past 24 hours 5. Acute intervention needed for co occurring medical disorder 6. Acute intervention needed for co occurring psychiatric disorder 7. Severe withdrawal that cannot be handled at a lower level of care (continued vomiting, continued diarrhea, abnormal vital signs) requiring intravenous medication and/or fluids 8. Admitting History and Physical - Smoking History Smoking history: Current every day smoker Have you smoked in the past 12 months: Yes Aproximately how many cigarettes per day: 10 - Alcohol/Substance Use Hx Alcohol Use: Yes Admission [facility] Allergies/Adverse Reactions: Allergies Allergy/AdvReac Type Severity Reaction Status Date / Time No Known Allergies Allergy Verified 06/08/19 18:21 - Ebola screening Have you traveled outside of the country in the last 21 days: No (N) Have you had contact with anyone from an Ebola affected area: No Do you have a fever: No Patient History - Patient Medical History Hx Anemia: No Hx Asthma: No Hx Chronic Obstructive Pulmonary Disease (COPD): No Hx Cancer: No Hx Cardiac Disorders: No Hx Congestive Heart Failure: No Hx Hypertension: No Hx Hypercholesterolemia: No Hx Pacemaker: No HX Cerebrovascular Accident: No Hx Seizures: No Hx Dementia: No Hx Diabetes: No Hx Gastrointestinal Disorders: No Hx Liver Disease: No Hx Genitourinary Disorders: No Hx Sexually Transmitted Disorders: No Hx Renal Disease (ESRD): No Hx Thyroid Disease: No Hx Human Immunodeficiency Virus (HIV): Yes Hx Hepatitis C: No Hx Depression: Yes Hx Suicide Attempt: No Hx Bipolar Disorder: No Hx Schizophrenia: No - Patient Surgical History Past Surgical History: Yes Hx Neurologic Surgery: No Hx Cataract Extraction: No Hx Cardiac Surgery: No Hx Lung Surgery: No Hx Breast Surgery: No Hx Breast Biopsy: No Hx Abdominal Surgery: No Hx Appendectomy: No Hx Cholecystectomy: No Hx Genitourinary Surgery: No Hx Section: No Hx Orthopedic Surgery: Yes (left knee arthroscopy ) Anesthesia Reaction: No - PPD History Previous Implant?: Yes Documented Results: Negative w/o proof Implanted On Prior [facility] Admission?: Yes Date: 05/05/19 - Smoking Cessation Smoking history: Current every day smoker Have you smoked in the past 12 months: Yes Aproximately how many cigarettes per day: 10 Hx Chewing Tobacco Use: No Initiated information on smoking cessation: Yes - Substances abused Alcohol Substance route: Oral Frequency: Daily Amount used: two x 6 packs of beer and 2 pints LIQUOR. Age of first use: 12 Date of last use: 06/07/19 Alprazolam (Xanax) Substance route: Oral Frequency: Daily Amount used: 4MG /DAY Age of first use: 38 Date of last use: 06/08/19 Admission Physical Exam BHS - Vital Signs Vital Signs: Vital Signs - 24 hr 06/08/19 06/08/19 18:22 20:45 Temperature 97.8 F 97.8 F Pulse Rate 95 H 95 H Respiratory 17 17 Rate Blood Pressure 146/82 146/82 - Diagnostic (1) Benzodiazepine dependence Current Visit: Yes Status: Chronic (2) Cocaine dependence, uncomplicated Current Visit: Yes Status: Chronic Comment: . (3) Alcohol dependence with withdrawal Current Visit: No Status: Chronic Qualifiers: Complication of substance-induced condition: uncomplicated (4) Cocaine dependence Current Visit: Yes Status: Chronic Qualifiers: Substance use status: uncomplicated Qualified Code(s): F14.20 - Cocaine dependence, uncomplicated (5) HIV (human immunodeficiency virus infection) Current Visit: Yes Status: Chronic (6) Nicotine dependence Current Visit: Yes Status: Chronic Qualifiers: Nicotine product type: cigarettes Substance use status: uncomplicated Qualified Code(s): F17.210 - Nicotine dependence, cigarettes, uncomplicated Comment: . Breathalyzer - Breathalyzer Breathalyzer: 0 Urine Drug Screen - Test Device Lot number: [id number] Expiration date: 02/01/21 - Control Is test valid?: Yes - Results Urine drug screen results: NAFISA-Cocaine, BZO-Benzodiazepines
[2019-06-08] MEDS ORDERED: MAGNESIUM CITRATE 300 ML BOTTLE PO PRN (21:52)
[2019-06-08] MEDS ORDERED: MAG HYDROX/AL HYDROX/SIMETH 30 ML UNIT-DOSE CUP PO PRN (21:52)
[2019-06-08] MEDS ORDERED: NICOTINE POLACRILEX 2 MG GUM BUC PRN (21:52)
[2019-06-08] MEDS ORDERED: METHOCARBAMOL 500 MG TABLET PO PRN (21:52)
[2019-06-08] MEDS ORDERED: IBUPROFEN 400 MG TABLET (FP) PO PRN (21:52)
[2019-06-08] MEDS ORDERED: diazePAM 5 MG TABLET PO PRN (21:52)
[2019-06-08] MEDS ORDERED: MENTHOL/PHENOL 1 EACH UD MM PRN (21:52)
[2019-06-08] MEDS ORDERED: BISMUTH SUBSALICYLATE 524 MG/30 ML UD PO PRN (21:52)
[2019-06-08] MEDS ORDERED: MAGNESIUM HYDROX 2400MG/30ML ORAL SUSPENSION 30 ML CUP PO PRN (21:52)
[2019-06-08] MEDS ORDERED: MELATONIN 5 MG TABLETS PO PRN (21:52)
[2019-06-08] MEDS ORDERED: hydrOXYzine PAMOATE 25 MG CAPSULE (FP) PO PRN (21:52)
[2019-06-08] MEDS ORDERED: ACETAMINOPHEN 325 MG TABLET (FP) PO PRN ×2 (21:52)
[2019-06-08] MEDS: THIAMINE HCL 100 MG TABLET (FP) PO SCH (23:03)
[2019-06-08] MEDS: diazePAM 5 MG TABLET PO SCH (23:04)
[2019-06-09] MEDS: diazePAM 5 MG TABLET PO SCH ×3 (06:11→22:25)
[2019-06-09 10:12] LABS: HEMATOCRIT 37.3 % (35.4-49); HEMOGLOBIN 12.1 GM/dL (11.7-16.9); MCH 26.4 pg (25.7-33.7); MCHC 32.4 g/dl (32.0-35.9); MEAN CELL VOLUME 81.5 fl (80-96); MEAN PLT VOLUME 8.7 fl (7.5-11.1); PLATELET COUNT 315 K/MM3 (134-434); RBC 4.57 M/mm3 (4.00-5.60); RDW 15.4 % (11.9-15.9); WHITE BLOOD COUNT 6.6 K/mm3 (4.0-10.0)
[2019-06-09] MEDS: NICOTINE 14 MG/24 HOURS TOPICAL PATCH TD SCH (10:13)
[2019-06-09] MEDS: PRENATAL VITAMINS W/ FOLIC ACID TABLET (FP) PO SCH (10:13)
[2019-06-09 10:23] LABS: ALBUMIN 3.3 g/dl (3.4-5.0); BILIRUBIN,TOTAL 0.2 mg/dL (0.2-1); BLOOD UREA NITROGEN 17.9 mg/dL (7-18); CALCIUM 8.3 mg/dL (8.5-10.1); CREATININE 1.3 mg/dL (0.55-1.3); POTASSIUM 3.9 mmol/L (3.5-5.1); TOT PROT 6.2 g/dl (6.4-8.2)
--- NOTE | 2019-06-09 11:31 | EKG ---
Test Reason : Blood Pressure : / mmHG Vent. Rate : 084 BPM Atrial Rate : 084 BPM P-R Int : 168 ms QRS Dur : 104 ms QT Int : 420 ms P-R-T Axes : 066 056 108 degrees QTc Int : 496 ms NORMAL SINUS RHYTHM LEFT VENTRICULAR HYPERTROPHY WITH REPOLARIZATION ABNORMALITY PROLONGED QT ABNORMAL ECG WHEN COMPARED WITH ECG OF 10-MAR-2018 21:49, T WAVE INVERSION LESS EVIDENT IN ANTERIOR LEADS Confirmed by PILY UMANZOR, ROLAN ([id number]) on 06/09/2019 11:31:31 AM Referred By: Confirmed By:ROLAN NASCIMENTO MD
--- NOTE | 2019-06-09 11:31 | EKG ---
Test Reason : Blood Pressure : / mmHG Vent. Rate : 072 BPM Atrial Rate : 072 BPM P-R Int : 174 ms QRS Dur : 108 ms QT Int : 428 ms P-R-T Axes : 076 060 122 degrees QTc Int : 468 ms NORMAL SINUS RHYTHM LEFT VENTRICULAR HYPERTROPHY WITH REPOLARIZATION ABNORMALITY ABNORMAL ECG WHEN COMPARED WITH ECG OF 08-JUN-2019 23:21, ST NO LONGER DEPRESSED IN ANTERIOR LEADS T WAVE INVERSION MORE EVIDENT IN ANTERIOR LEADS Confirmed by ROLAN NASCIMENTO MD ([id number]) on 06/09/2019 11:30:55 AM Referred By: Confirmed By:ROLAN NASCIMENTO MD
--- NOTE | 2019-06-09 11:49 | PN ---
S CIWA - CIWA Score Nausea/Vomitin-Mild Nausea/No Vomiting Muscle Tremors: 2 Anxiety: 2 Agitation: 2 Paroxysmal Sweats: No Perspiration Orientation: 0-Oriented Tacttile Disturbances: 1-Very Mild Itch/Numbness Auditory Disturbances: 0-None Visual Disturbances: 0-None Headache: 1-Very Mild CIWA-Ar Total Score: 9 BHS Progress Note (SOAP) Subjective: alert,irritable,anxious,interrupted sleep,patient stated his hiv is negative, last hiv test on 03/11/18 is negative, stated he use to take medication for prep,and insist on having hiv test done Objective: 06/09/19 11:48 Vital Signs Temperature 96.8 F L 06/09/19 09:17 Pulse Rate 76 06/09/19 09:17 Respiratory Rate 18 06/09/19 09:17 Blood Pressure 104/62 06/09/19 09:17 O2 Sat by Pulse Oximetry (%) Assessment: 06/09/19 11:48 withdrawal symptom Plan: continue detox valium regimen,will do hiv test by patient 's request
--- NOTE | 2019-06-09 16:10 | CONSULT ---
[facility] Psychiatric Consult - Data Date of interview: 06/09/19 Admission source: [facility] Identifying data: Readmission to [facility] for this 39 y/o AA male self- referred for detoxification (RIVER issues : alcohol, nicotine, xanax, cocaine). Interviewed at [address] [place] [address]. Patient is single without dependents, homeless, unemployed and deprived of any source of income. Substance Abuse History: Discussed with the patient. Details in current [facility] report as follows : Smoking history: Current every day smoker. Have you smoked in the past 12 months: Yes. Aproximately how many cigarettes per day: 10. Hx Chewing Tobacco Use: No. Initiated information on smoking cessation: Yes. ' Breaking Loose' booklet given: 06/08/19. - Substance & Tx. History. Hx Alcohol Use: Yes. Hx Substance Use: Yes. Substance Use Type: Alcohol. Hx Substance Use Treatment: Yes ([facility]). - Substances abused. Alcohol. Substance route: Oral. Frequency: Daily. Amount used: two x 6 packs of beer and 2 pints LIQUOR. Age of first use: 12. Date of last use: 06/07/19. Alprazolam (Xanax). Substance route: Oral. Frequency: Daily. Amount used: 4MG /DAY. Age of first use: 38. Date of last use: 06/08/19 Medical History: Medical profile is remarkable for antecedent of two episodes of myocardial infarction (2008 + 2012) and history of left knee arthroscopy. Psychiatric History: Patient denies history of psychiatric hospitalizations, OPD care or suicide attempts. Mr Alanis indicates that, at his recent admission to [facility] (detoxification unit), he was prescribed seroquel 100 mg/hs. Patient is willing to resume same medication/dose during this hospital course. Physical/Sexual Abuse/Trauma History: Patient denies. Additional Comment: Urine drug screen results: NAFISA-Cocaine, BZO- Benzodiazepines. Noted. Mental Status Exam - Mental Status Exam Alert and Oriented to: Time, Place, Person Cognitive Function: Good Patient Appearance: Well Groomed Mood: Withdrawn Affect: Mood Congruent, Constricted Patient Behavior: Fatigued, Appropriate, Cooperative Speech Pattern: Clear Voice Loudness: Normal Thought Process: Intact, Goal Oriented Thought Disorder: Not Present Hallucinations: Denies Suicidal Ideation: Denies Homicidal Ideation: Denies Insight/Judgement: Poor Sleep: Poorly, Difficulty falling asleep Appetite: Good Muscle strength/Tone: Normal Gait/Station: Normal Psychiatric Findings - Problem List ([place] 1, 2,3) (1) Alcohol dependence with withdrawal Current Visit: Yes Status: Acute Qualifiers: Complication of substance-induced condition: uncomplicated Qualified Code(s ): F10.230 - Alcohol dependence with withdrawal, uncomplicated (2) Benzodiazepine dependence Current Visit: Yes Status: Chronic (3) Cocaine dependence Current Visit: Yes Status: Chronic Qualifiers: Substance use status: uncomplicated Qualified Code(s): F14.20 - Cocaine dependence, uncomplicated (4) Nicotine dependence Current Visit: Yes Status: Chronic Qualifiers: Nicotine product type: cigarettes Substance use status: uncomplicated Qualified Code(s): F17.210 - Nicotine dependence, cigarettes, uncomplicated Comment: . (5) Substance induced mood disorder Current Visit: Yes Status: Chronic Comment: . (6) Insomnia Current Visit: Yes Status: Chronic (7) Non-compliance Current Visit: Yes Status: Chronic - Initial Treatment Plan Initial Treatment Plan: Psychoeducation. Sleep hygiene. Detoxification. AA meetings. MAT services offered to patient : he declines. Resumed : seroquel 100 mg po hs. Side effects/benefits discussed in this session. Mr Alanis is in agreement with this plan of care. Verbal consent granted to MD. Villarreal.
[2019-06-09] MEDS: THIAMINE HCL 100 MG TABLET (FP) PO SCH (22:23)
[2019-06-09] MEDS: QUEtiapine FUMARATE 100 MG TABLET (FP) PO SCH (22:24)
[2019-06-10] MEDS: diazePAM 5 MG TABLET PO SCH ×2 (06:36→18:03)
[2019-06-10] MEDS: NICOTINE 14 MG/24 HOURS TOPICAL PATCH TD SCH (10:36)
[2019-06-10] MEDS: PRENATAL VITAMINS W/ FOLIC ACID TABLET (FP) PO SCH (10:36)
--- NOTE | 2019-06-10 13:36 | PN ---
[facility] CIWA - CIWA Score Nausea/Vomitin-No Nausea/No Vomiting Muscle Tremors: None Anxiety: 1-Mildly Anxious Agitation: 0-Normal Activity Paroxysmal Sweats: 2 Orientation: 0-Oriented Tacttile Disturbances: 0-None Auditory Disturbances: 0-None Visual Disturbances: 0-None Headache: 0-None Present CIWA-Ar Total Score: 3 BHS Progress Note (SOAP) Subjective: c/o mild withdrawal symptoms. Objective: 06/10/19 13:34 Vital Signs 06/10/19 06/10/19 07:30 09:29 Temperature 97.2 F L 97.2 F L Pulse Rate 96 H 80 Respiratory 18 18 Rate Blood Pressure 106/64 113/60 Laboratory Last Values WBC 6.6 K/mm3 (4.0-10.0) 06/09/19 07:45 RBC 4.57 M/mm3 (4.00-5.60) 06/09/19 07:45 Hgb 12.1 GM/dL (11.7-16.9) 06/09/19 07:45 Hct 37.3 % (35.4-49) 06/09/19 07:45 MCV 81.5 fl (80-96) 06/09/19 07:45 MCH 26.4 pg (25.7-33.7) 06/09/19 07:45 MCHC 32.4 g/dl (32.0-35.9) 06/09/19 07:45 RDW 15.4 % (11.9-15.9) 06/09/19 07:45 Plt Count 315 K/MM3 (134-434) D 06/09/19 07:45 MPV 8.7 fl (7.5-11.1) 06/09/19 07:45 Sodium 141 mmol/L (136-145) 06/09/19 07:45 Potassium 3.9 mmol/L (3.5-5.1) 06/09/19 07:45 Chloride 106 mmol/L (98-107) 06/09/19 07:45 Carbon Dioxide 28 mmol/L (21-32) 06/09/19 07:45 Anion Gap 7 MMOL/L (8-16) L 06/09/19 07:45 BUN 17.9 mg/dL (7-18) 06/09/19 07:45 Creatinine 1.3 mg/dL (0.55-1.3) 06/09/19 07:45 Est GFR (CKD-EPI)AfAm 79.66 06/09/19 07:45 Est GFR (CKD-EPI)NonAf 68.73 06/09/19 07:45 Random Glucose 97 mg/dL (74-106) 06/09/19 07:45 Calcium 8.3 mg/dL (8.5-10.1) L 06/09/19 07:45 Total Bilirubin 0.2 mg/dL (0.2-1) 06/09/19 07:45 AST 54 U/L (15-37) H 06/09/19 07:45 ALT 46 U/L (13-61) 06/09/19 07:45 Alkaline Phosphatase 48 U/L (45-117) 06/09/19 07:45 Total Protein 6.2 g/dl (6.4-8.2) L 06/09/19 07:45 Albumin 3.3 g/dl (3.4-5.0) L 06/09/19 07:45 RPR Titer Nonreactive (NONREACTIVE) 06/09/19 07:45 HIV 1&2 Antibody Screen Negative 06/09/19 11:30 HIV P24 Antigen Negative 06/09/19 11:30 Labs noted. Assessment: 06/10/19 13:35 AOX3, in no acute respiratory distress. Full ROM, ambulating in the unit. Mild Withdrawal symptoms. For d/c tomorrow. 06/10/19 13:35 Plan: continue detox. D/C in AM.
[2019-06-10] MEDS: THIAMINE HCL 100 MG TABLET (FP) PO SCH (22:11)
[2019-06-10] MEDS: QUEtiapine FUMARATE 100 MG TABLET (FP) PO SCH (22:11)
[2019-06-11] MEDS ORDERED: diazePAM 5 MG TABLET PO ONE (06:00)
[2019-06-11 09:11] VITALS: BP 132/81; PULSE 82; TEMP 96.3
[2019-06-11] MEDS: PRENATAL VITAMINS W/ FOLIC ACID TABLET (FP) PO SCH (10:33)
[2019-06-11] MEDS: NICOTINE 14 MG/24 HOURS TOPICAL PATCH TD SCH (10:34)
--- NOTE | 2019-06-11 12:52 | DS ---
[facility] Detox Discharge Summary Admission Date: 06/08/19 Discharge Date: 06/11/19 - History Present History: Alcohol Dependence, Sedative Dependence Additional Comments: 39 years old male admitted on 06/08/19 for alcohol and benzo withdrawal sx management treated with valium detox regimen patient tolerated well alert oriented x 3 cardiac s1s2 regular rate rhythm respiratory clear lung bilaterally on auscultation patient reports scheduled for orthopedic surgery in [place] as soon as possible after discharged from detox skin warm and dry - Physical Exam Results Vital Signs: Vital Signs Temperature 96.3 F L 06/11/19 09:10 Pulse Rate 82 06/11/19 09:10 Respiratory Rate 18 06/11/19 09:10 Blood Pressure 132/81 06/11/19 09:10 O2 Sat by Pulse Oximetry (%) Pertinent Admission Physical Exam Findings: alcohol and benzo withdrawal sx Laboratory Last Values WBC 6.6 K/mm3 (4.0-10.0) 06/09/19 07:45 RBC 4.57 M/mm3 (4.00-5.60) 06/09/19 07:45 Hgb 12.1 GM/dL (11.7-16.9) 06/09/19 07:45 Hct 37.3 % (35.4-49) 06/09/19 07:45 MCV 81.5 fl (80-96) 06/09/19 07:45 MCH 26.4 pg (25.7-33.7) 06/09/19 07:45 MCHC 32.4 g/dl (32.0-35.9) 06/09/19 07:45 RDW 15.4 % (11.9-15.9) 06/09/19 07:45 Plt Count 315 K/MM3 (134-434) D 06/09/19 07:45 MPV 8.7 fl (7.5-11.1) 06/09/19 07:45 Sodium 141 mmol/L (136-145) 06/09/19 07:45 Potassium 3.9 mmol/L (3.5-5.1) 06/09/19 07:45 Chloride 106 mmol/L (98-107) 06/09/19 07:45 Carbon Dioxide 28 mmol/L (21-32) 06/09/19 07:45 Anion Gap 7 MMOL/L (8-16) L 06/09/19 07:45 BUN 17.9 mg/dL (7-18) 06/09/19 07:45 Creatinine 1.3 mg/dL (0.55-1.3) 06/09/19 07:45 Est GFR (CKD-EPI)AfAm 79.66 06/09/19 07:45 Est GFR (CKD-EPI)NonAf 68.73 06/09/19 07:45 Random Glucose 97 mg/dL (74-106) 06/09/19 07:45 Calcium 8.3 mg/dL (8.5-10.1) L 06/09/19 07:45 Total Bilirubin 0.2 mg/dL (0.2-1) 06/09/19 07:45 AST 54 U/L (15-37) H 06/09/19 07:45 ALT 46 U/L (13-61) 06/09/19 07:45 Alkaline Phosphatase 48 U/L (45-117) 06/09/19 07:45 Total Protein 6.2 g/dl (6.4-8.2) L 06/09/19 07:45 Albumin 3.3 g/dl (3.4-5.0) L 06/09/19 07:45 RPR Titer Nonreactive (NONREACTIVE) 06/09/19 07:45 HIV 1&2 Antibody Screen Negative 06/09/19 11:30 HIV P24 Antigen Negative 06/09/19 11:30 lab noted - Treatment Hospital Course: Detox Protocol Followed, Detoxed Safely, Responded well, Discharged Condition Good, Rehab Referral Accepted Patient has Accepted [facility] Referral [facility] - Medication Discharge Medications: Ambulatory Orders Quetiapine Fumarate [Seroquel -] 100 mg PO BID 06/08/19 - Diagnosis (1) Alcohol dependence with withdrawal Status: Acute Qualifiers: Complication of substance-induced condition: uncomplicated Qualified Code(s ): F10.230 - Alcohol dependence with withdrawal, uncomplicated (2) Benzodiazepine dependence Status: Acute (3) Degenerative arthritis of knee, bilateral Status: Chronic Qualifiers: Osteoarthritis type: unspecified Qualified Code(s): M17.0 - Bilateral primary osteoarthritis of knee (4) HIV (human immunodeficiency virus infection) Status: Chronic Qualifiers: HIV symptom status: asymptomatic Qualified Code(s): Z21 - Asymptomatic human immunodeficiency virus [HIV] infection status (5) Nicotine dependence Status: Acute Qualifiers: Nicotine product type: cigarettes Substance use status: in withdrawal Qualified Code(s): F17.213 - Nicotine dependence, cigarettes, with withdrawal (6) Substance induced mood disorder Status: Suspected - AMA Did Patient Leave Against Medical Advice: No CIWA Score - CIWA Score Nausea/Vomitin-No Nausea/No Vomiting Muscle Tremors: None Anxiety: 0-No Anxiety, at Ease Agitation: 0-Normal Activity Paroxysmal Sweats: 1-Minimal Palms Moist Orientation: 0-Oriented Tacttile Disturbances: 0-None Auditory Disturbances: 0-None Visual Disturbances: 0-None Headache: 0-None Present CIWA-Ar Total Score: 1
== END 2019-06-11 12:25 | disposition home or self-care (01) | DRG 774 ==
LOC: YASAS 16:20 → Y3N 22:18
PROVIDERS: ADMIT Allergy & Immunology; ATTEND Allergy & Immunology
PROC: HZ2ZZZZ Detoxification Services for Substance Abuse Treatment (ICD-10-PCS; principal; 2019-06-08)
DX: F10.230 Alcohol dependence with withdrawal, uncomplicated (principal); F13.230 Sedative, hypnotic or anxiolytic dependence with withdrawal, uncomplicated; F14.20 Cocaine dependence, uncomplicated; F17.210 Nicotine dependence, cigarettes, uncomplicated; F19.24 Other psychoactive substance dependence with psychoactive substance-induced mood disorder; Z21 Asymptomatic human immunodeficiency virus [HIV] infection status; G47.00 Insomnia, unspecified; M17.0 Bilateral primary osteoarthritis of knee; I25.10 Atherosclerotic heart disease of native coronary artery without angina pectoris; I25.2 Old myocardial infarction; Z91.19 Patient's noncompliance with other medical treatment and regimen
CPT/HCPCS: 36415; 80053; 85027; 86593; 87389; 93005; 93010

== ENCOUNTER 2020-07-28 10:02 | Inpatient (IN) | payer OTHER ==
[2020-07-28 10:46] VITALS: BMI 26.5
[2020-07-28] MEDS ORDERED: MENTHOL/PHENOL 1 EACH UD MM PRN (13:39)
[2020-07-28] MEDS ORDERED: MAGNESIUM CITRATE 300 ML BOTTLE PO PRN (13:39)
[2020-07-28] MEDS ORDERED: METHOCARBAMOL 500 MG TABLET PO PRN (13:39)
[2020-07-28] MEDS ORDERED: IBUPROFEN 400 MG TABLET (FP) PO PRN (13:39)
[2020-07-28] MEDS ORDERED: NICOTINE POLACRILEX 2 MG GUM BUC PRN (13:39)
[2020-07-28] MEDS ORDERED: ACETAMINOPHEN 325 MG TABLET (FP) PO PRN ×2 (13:39)
[2020-07-28] MEDS ORDERED: BISMUTH SUBSALICYLATE 524 MG/30 ML UD PO PRN (13:39)
[2020-07-28] MEDS ORDERED: MAGNESIUM HYDROX 2400MG/30ML ORAL SUSPENSION 30 ML CUP PO PRN (13:39)
[2020-07-28] MEDS ORDERED: diazePAM 5 MG TABLET PO PRN (13:39)
[2020-07-28] MEDS ORDERED: MAG HYDROX/AL HYDROX/SIMETH 30 ML UNIT-DOSE CUP PO PRN (13:39)
[2020-07-28] MEDS ORDERED: ONDANSETRON *ODT* 4 MG TABLET SL PRN (13:39)
[2020-07-28] MEDS: hydrOXYzine PAMOATE 25 MG CAPSULE (FP) PO SCH ×3 (15:41→22:28)
[2020-07-28] MEDS: diazePAM 5 MG TABLET PO SCH ×2 (17:41→22:28)
[2020-07-28] MEDS ORDERED: QUEtiapine FUMARATE 50 MG TABLET PO ONE (22:00)
[2020-07-28] MEDS: MELATONIN 5 MG TABLETS PO SCH (22:28)
[2020-07-28] MEDS: THIAMINE HCL 100 MG TABLET (FP) PO SCH (22:28)
[2020-07-29] MEDS: diazePAM 5 MG TABLET PO SCH ×4 (05:16→22:51)
[2020-07-29] MEDS: hydrOXYzine PAMOATE 25 MG CAPSULE (FP) PO SCH ×5 (05:16→22:51)
[2020-07-29] MEDS: PRENATAL VITAMINS W/ FOLIC ACID TABLET (FP) PO SCH (09:31)
[2020-07-29 12:11] LABS: POTASSIUM 4.6 mmol/L (3.5-5.1)
[2020-07-29 12:32] LABS: CALCIUM 8.5 mg/dL (8.5-10.1); HEMATOCRIT 40.1 % (35.4-49); HEMOGLOBIN 13.3 GM/dL (11.7-16.9); MCH 26.9 pg (25.7-33.7); MCHC 33.1 g/dl (32.0-35.9); MEAN CELL VOLUME 81.3 fl (80-96); MEAN PLT VOLUME 9.2 fl (7.5-11.1); PLATELET COUNT 231 K/MM3 (134-434); RBC 4.94 M/mm3 (4.00-5.60); RDW 14.9 % (11.9-15.9); WHITE BLOOD COUNT 3.9 K/mm3 (4.0-10.0)
[2020-07-29 12:33] LABS: ALBUMIN 3.3 g/dl (3.4-5.0); BLOOD UREA NITROGEN 10.2 mg/dL (7-18)
[2020-07-29 12:35] LABS: CREATININE 1.1 mg/dL (0.55-1.3)
[2020-07-29 12:37] LABS: BILIRUBIN,TOTAL 0.7 mg/dL (0.2-1); TOT PROT 6.5 g/dl (6.4-8.2)
[2020-07-29] MEDS: MELATONIN 5 MG TABLETS PO SCH (22:50)
[2020-07-29] MEDS: THIAMINE HCL 100 MG TABLET (FP) PO SCH (22:51)
[2020-07-29] MEDS: QUEtiapine FUMARATE 100 MG TABLET (FP) PO SCH (22:51)
[2020-07-30] MEDS: diazePAM 5 MG TABLET PO SCH ×3 (06:11→22:38)
[2020-07-30] MEDS: hydrOXYzine PAMOATE 25 MG CAPSULE (FP) PO SCH ×2 (06:11→11:36)
[2020-07-30] MEDS: PRENATAL VITAMINS W/ FOLIC ACID TABLET (FP) PO SCH (09:46)
[2020-07-30] MEDS ORDERED: hydrOXYzine PAMOATE 25 MG CAPSULE (FP) PO PRN (11:19)
[2020-07-30] MEDS: MELATONIN 5 MG TABLETS PO SCH (22:36)
[2020-07-30] MEDS: QUEtiapine FUMARATE 100 MG TABLET (FP) PO SCH (22:37)
[2020-07-30] MEDS: THIAMINE HCL 100 MG TABLET (FP) PO SCH (22:37)
[2020-07-31] MEDS: diazePAM 5 MG TABLET PO SCH ×2 (05:51→17:38)
[2020-07-31] MEDS: PRENATAL VITAMINS W/ FOLIC ACID TABLET (FP) PO SCH (10:33)
[2020-07-31] MEDS: MELATONIN 5 MG TABLETS PO SCH (22:19)
[2020-07-31] MEDS: QUEtiapine FUMARATE 100 MG TABLET (FP) PO SCH (22:19)
[2020-07-31] MEDS: THIAMINE HCL 100 MG TABLET (FP) PO SCH (22:19)
[2020-08-01] MEDS ORDERED: diazePAM 5 MG TABLET PO ONE (06:00)
[2020-08-01] MEDS: PRENATAL VITAMINS W/ FOLIC ACID TABLET (FP) PO SCH (09:03)
[2020-08-01 13:02] VITALS: BP 112/62; PULSE 85; TEMP 97
== END 2020-08-01 15:20 | disposition home or self-care (01) | DRG 774 ==
LOC: YASAS 10:02 → Y3N 14:32
PROVIDERS: ADMIT Allergy & Immunology; ATTEND Allergy & Immunology
PROC: HZ2ZZZZ Detoxification Services for Substance Abuse Treatment (ICD-10-PCS; principal; 2020-07-28)
DX: F10.230 Alcohol dependence with withdrawal, uncomplicated (principal); F13.20 Sedative, hypnotic or anxiolytic dependence, uncomplicated; F14.20 Cocaine dependence, uncomplicated; F17.213 Nicotine dependence, cigarettes, with withdrawal; F19.282 Other psychoactive substance dependence with psychoactive substance-induced sleep disorder; U07.1 COVID-19; F90.9 Attention-deficit hyperactivity disorder, unspecified type; F19.24 Other psychoactive substance dependence with psychoactive substance-induced mood disorder; G47.00 Insomnia, unspecified; M54.5 Low back pain; M17.0 Bilateral primary osteoarthritis of knee; R45.89 Other symptoms and signs involving emotional state; Z91.018 Allergy to other foods
CPT/HCPCS: 36415; 80053; 85027; 86780; C9803; U0003

== ENCOUNTER 2020-09-26 12:30 | Inpatient (IN) | payer OTHER ==
[2020-09-26 13:15] VITALS: BMI 25.2
[2020-09-26] MEDS ORDERED: chlordiazePOXIDE HCL 25 MG CAPSULE PO PRN (13:51)
[2020-09-26] MEDS ORDERED: MAG HYDROX/AL HYDROX/SIMETH 30 ML UNIT-DOSE CUP PO PRN (13:51)
[2020-09-26] MEDS ORDERED: METHOCARBAMOL 500 MG TABLET PO PRN (13:51)
[2020-09-26] MEDS ORDERED: IBUPROFEN 400 MG TABLET (FP) PO PRN (13:51)
[2020-09-26] MEDS ORDERED: MAGNESIUM HYDROX 2400MG/30ML ORAL SUSPENSION 30 ML CUP PO PRN (13:51)
[2020-09-26] MEDS ORDERED: MAGNESIUM CITRATE 300 ML BOTTLE PO PRN (13:51)
[2020-09-26] MEDS ORDERED: BISMUTH SUBSALICYLATE 262 MG/15 ML BTL PO PRN (13:51)
[2020-09-26] MEDS ORDERED: ACETAMINOPHEN 325 MG TABLET (FP) PO PRN ×2 (13:51)
[2020-09-26] MEDS ORDERED: ONDANSETRON *ODT* 4 MG TABLET SL PRN (13:51)
[2020-09-26] MEDS ORDERED: MENTHOL/PHENOL 1 EACH UD MM PRN (13:51)
[2020-09-26] MEDS ORDERED: NICOTINE POLACRILEX 2 MG GUM BUC PRN (13:51)
[2020-09-26] MEDS: MELATONIN 5 MG TABLETS PO SCH (23:08)
[2020-09-26] MEDS: THIAMINE HCL 100 MG TABLET (FP) PO SCH (23:08)
[2020-09-26] MEDS: chlordiazePOXIDE HCL 25 MG CAPSULE PO SCH ×2 (23:09→23:10)
[2020-09-26] MEDS: hydrOXYzine PAMOATE 25 MG CAPSULE (FP) PO SCH ×2 (23:10→23:11)
[2020-09-27] MEDS: chlordiazePOXIDE HCL 25 MG CAPSULE PO SCH ×4 (07:20→22:30)
[2020-09-27] MEDS: hydrOXYzine PAMOATE 25 MG CAPSULE (FP) PO SCH ×2 (07:20→10:30)
[2020-09-27] MEDS: PRENATAL VITAMINS W/ FOLIC ACID TABLET (FP) PO SCH (10:30)
[2020-09-27] MEDS ORDERED: hydrOXYzine PAMOATE 25 MG CAPSULE (FP) PO PRN (10:46)
[2020-09-27 10:53] LABS: HEMATOCRIT 39.5 % (35.4-49); MCH 26.9 pg (25.7-33.7); MEAN CELL VOLUME 81.7 fl (80-96); MEAN PLT VOLUME 8.4 fl (7.5-11.1); PLATELET COUNT 300 K/MM3 (134-434); RBC 4.84 M/mm3 (4.00-5.60); RDW 15.4 % (11.9-15.9); WHITE BLOOD COUNT 3.8 K/mm3 (4.0-10.0)
[2020-09-27 11:00] LABS: ALBUMIN 3.2 g/dl (3.4-5.0); CALCIUM 9.2 mg/dL (8.5-10.1)
[2020-09-27 11:01] LABS: BLOOD UREA NITROGEN 11.6 mg/dL (7-18)
[2020-09-27 11:04] LABS: CREATININE 1.1 mg/dL (0.55-1.3)
[2020-09-27 11:05] LABS: BILIRUBIN,TOTAL 0.2 mg/dL (0.2-1); TOT PROT 6.2 g/dl (6.4-8.2)
[2020-09-27 11:10] LABS: POTASSIUM 4.1 mmol/L (3.5-5.1)
[2020-09-27 11:54] LABS: HIV INTERPRETATION NEGATIVE (NEGATIVE)
[2020-09-27] MEDS: THIAMINE HCL 100 MG TABLET (FP) PO SCH (22:30)
[2020-09-27] MEDS: MELATONIN 5 MG TABLETS PO SCH (22:30)
[2020-09-28] MEDS: chlordiazePOXIDE HCL 25 MG CAPSULE PO SCH ×4 (06:33→22:41)
[2020-09-28] MEDS: PRENATAL VITAMINS W/ FOLIC ACID TABLET (FP) PO SCH (10:37)
[2020-09-28] MEDS: MELATONIN 5 MG TABLETS PO SCH (22:40)
[2020-09-28] MEDS: THIAMINE HCL 100 MG TABLET (FP) PO SCH (22:40)
[2020-09-29] MEDS ORDERED: chlordiazePOXIDE HCL 10 MG CAPSULE PO PRN
[2020-09-29] MEDS: chlordiazePOXIDE HCL 10 MG CAPSULE PO SCH ×4 (06:06→22:05)
[2020-09-29] MEDS: PRENATAL VITAMINS W/ FOLIC ACID TABLET (FP) PO SCH (11:03)
[2020-09-29] MEDS: amLODIPine BESYLATE 5 MG TABLET (FP) PO SCH (17:12)
[2020-09-29] MEDS: THIAMINE HCL 100 MG TABLET (FP) PO SCH (22:05)
[2020-09-29] MEDS: MELATONIN 5 MG TABLETS PO SCH (22:05)
[2020-09-30] MEDS: chlordiazePOXIDE HCL 10 MG CAPSULE PO SCH ×2 (05:58→18:25)
[2020-09-30] MEDS: PRENATAL VITAMINS W/ FOLIC ACID TABLET (FP) PO SCH (10:00)
[2020-09-30] MEDS: amLODIPine BESYLATE 5 MG TABLET (FP) PO SCH (10:00)
[2020-09-30] MEDS: MELATONIN 5 MG TABLETS PO SCH (21:56)
[2020-09-30] MEDS: THIAMINE HCL 100 MG TABLET (FP) PO SCH (21:56)
[2020-10-01] MEDS ORDERED: chlordiazePOXIDE HCL 10 MG CAPSULE PO ONE (05:00)
[2020-10-01] MEDS: PRENATAL VITAMINS W/ FOLIC ACID TABLET (FP) PO SCH (10:35)
[2020-10-01] MEDS: amLODIPine BESYLATE 5 MG TABLET (FP) PO SCH (10:35)
[2020-10-01 13:22] VITALS: BP 117/64; PULSE 89; TEMP 98
== END 2020-10-01 13:45 | disposition other institution (70) | DRG 774 ==
LOC: YASAS 12:30 → Y3N 13:54
PROVIDERS: ADMIT Allergy & Immunology; ATTEND Allergy & Immunology
PROC: HZ2ZZZZ Detoxification Services for Substance Abuse Treatment (ICD-10-PCS; principal; 2020-09-26)
DX: F10.230 Alcohol dependence with withdrawal, uncomplicated (principal); F14.20 Cocaine dependence, uncomplicated; F13.20 Sedative, hypnotic or anxiolytic dependence, uncomplicated; F17.210 Nicotine dependence, cigarettes, uncomplicated; F32.9 Major depressive disorder, single episode, unspecified; F41.9 Anxiety disorder, unspecified; I10 Essential (primary) hypertension; I25.2 Old myocardial infarction; M17.0 Bilateral primary osteoarthritis of knee; R01.1 Cardiac murmur, unspecified; Z86.16 Personal history of COVID-19
CPT/HCPCS: 36415; 80053; 85027; 86780; 87389; 93005; 93010; C9803; U0003; U0005

== ENCOUNTER 2020-09-26 14:52 | Emergency (ER) | payer OTHER ==
[2020-09-26 15:02] VITALS: BMI 24.3
[2020-09-26 16:19] VITALS: BP 136/77; PULSE 76; TEMP 97.6
== END 2020-09-26 20:15 | disposition home or self-care (01) ==
LOC: JER 14:52
DX: R01.1 Cardiac murmur, unspecified (principal)
CPT/HCPCS: 93005; 93010; 99283-25

== ENCOUNTER 2020-10-01 14:09 | Inpatient (IN) | payer OTHER ==
[2020-10-01 14:33] VITALS: PULSE 93; TEMP 97.5
[2020-10-01] MEDS ORDERED: IBUPROFEN 400 MG TABLET (FP) PO PRN (15:18)
[2020-10-01] MEDS ORDERED: LOPERAMIDE HCL 2 MG CAPSULE PO PRN (15:18)
[2020-10-01] MEDS ORDERED: hydrOXYzine PAMOATE 25 MG CAPSULE (FP) PO PRN (15:18)
[2020-10-01] MEDS ORDERED: MENTHOL/PHENOL 1 EACH UD MM PRN (15:18)
[2020-10-01] MEDS ORDERED: MAGNESIUM HYDROX 2400MG/30ML ORAL SUSPENSION 30 ML CUP PO PRN (15:18)
[2020-10-01] MEDS ORDERED: ACETAMINOPHEN 325 MG TABLET (FP) PO PRN (15:18)
[2020-10-01] MEDS ORDERED: MAG HYDROX/AL HYDROX/SIMETH 30 ML UNIT-DOSE CUP PO PRN (15:18)
[2020-10-01] MEDS ORDERED: P-EPHED 60MG/TRIPROLIDI 2.5MG TABLET PO PRN (15:18)
[2020-10-01] MEDS ORDERED: guaiFENesin 200 MG/10 ML 10 ML UNIT-DOSE CUPS PO PRN (15:18)
[2020-10-01] MEDS ORDERED: MAGNESIUM CITRATE 300 ML BOTTLE PO PRN (15:18)
[2020-10-01] MEDS ORDERED: NICOTINE POLACRILEX 2 MG GUM BUC PRN (15:18)
[2020-10-01] MEDS ORDERED: TUBERCULIN PPD 5 TU/0.1ML VIAL ID ONE (15:48)
[2020-10-01] MEDS: MELATONIN 5 MG TABLETS PO SCH (21:29)
[2020-10-01] MEDS: THIAMINE HCL 100 MG TABLET (FP) PO SCH (21:30)
[2020-10-02] MEDS: PRENATAL VITAMINS W/ FOLIC ACID TABLET (FP) PO SCH (09:35)
[2020-10-02] MEDS: NICOTINE 7 MG/24 HOURS TOPICAL PATCH TD SCH (09:35)
[2020-10-02] MEDS ORDERED: amLODIPine BESYLATE 5 MG TABLET (FP) PO SCH (10:00)
[2020-10-02 10:28] VITALS: BP 99/58
[2020-10-02] MEDS: MELATONIN 5 MG TABLETS PO SCH (21:44)
[2020-10-02] MEDS: THIAMINE HCL 100 MG TABLET (FP) PO SCH (21:44)
[2020-10-02] MEDS ORDERED: QUEtiapine FUMARATE 100 MG TABLET (FP) PO SCH (22:00)
[2020-10-03] MEDS: NICOTINE 7 MG/24 HOURS TOPICAL PATCH TD SCH (11:28)
[2020-10-03] MEDS: PRENATAL VITAMINS W/ FOLIC ACID TABLET (FP) PO SCH (11:28)
== END 2020-10-03 20:02 | disposition home or self-care (01) | DRG 772 ==
LOC: YASAS 14:09 → Y5N 14:10
PROVIDERS: ADMIT Allergy & Immunology; ATTEND Allergy & Immunology
PROC: HZ42ZZZ Group Counseling for Substance Abuse Treatment, Cognitive-Behavioral (ICD-10-PCS; principal; 2020-10-01)
DX: F10.20 Alcohol dependence, uncomplicated (principal); F14.20 Cocaine dependence, uncomplicated; F13.20 Sedative, hypnotic or anxiolytic dependence, uncomplicated; F17.210 Nicotine dependence, cigarettes, uncomplicated; F19.282 Other psychoactive substance dependence with psychoactive substance-induced sleep disorder; F19.24 Other psychoactive substance dependence with psychoactive substance-induced mood disorder; I10 Essential (primary) hypertension; I25.2 Old myocardial infarction; Z86.16 Personal history of COVID-19; Z56.0 Unemployment, unspecified; Z59.0 Homelessness; Z91.018 Allergy to other foods

== ENCOUNTER 2021-11-12 11:20 | Inpatient (IN) | payer OTHER ==
[2021-11-12] MEDS ORDERED: cloNIDine HCL 0.1 MG TABLET PO PRN (12:14)
[2021-11-12] MEDS ORDERED: IBUPROFEN 400 MG TABLET (FP) PO PRN (12:14)
[2021-11-12] MEDS ORDERED: DICYCLOMINE HCL 10 MG CAPSULE PO PRN (12:14)
[2021-11-12] MEDS ORDERED: ONDANSETRON *ODT* 4 MG TABLET SL PRN (12:14)
[2021-11-12] MEDS ORDERED: ACETAMINOPHEN 325 MG TABLET (FP) PO PRN ×2 (12:14)
[2021-11-12] MEDS ORDERED: NALOXONE HCL (KLOXXADO) 8 MG SPRAY NS PRN (12:14)
[2021-11-12] MEDS ORDERED: BENZOCAINE/MENTHOL (CHLORASEPTIC ) LOZENGE MM PRN (12:14)
[2021-11-12] MEDS ORDERED: LOPERAMIDE HCL 2 MG CAPSULE PO PRN (12:14)
[2021-11-12] MEDS ORDERED: MAGNESIUM CITRATE 300 ML BOTTLE PO PRN (12:14)
[2021-11-12] MEDS ORDERED: MAG HYDROX/AL HYDROX/SIMETH 30 ML UNIT-DOSE CUP PO PRN (12:14)
[2021-11-12] MEDS ORDERED: MAGNESIUM HYDROX 2400MG/30ML ORAL SUSPENSION 30 ML CUP PO PRN (12:14)
[2021-11-12] MEDS ORDERED: methaDONE HCL 10 MG TABLET (FOR DETOX USE ONLY) PO ONE (12:14)
[2021-11-12] MEDS ORDERED: BISMUTH SUBSALICYLATE 262 MG/15 ML BTL PO PRN (12:14)
[2021-11-12 13:11] VITALS: BMI 25.5
[2021-11-12] MEDS: hydrOXYzine PAMOATE 25 MG CAPSULE (FP) PO SCH ×3 (15:17→23:22)
[2021-11-12] MEDS: METHOCARBAMOL 500 MG TABLET PO PRN (18:15)
[2021-11-12] MEDS: MELATONIN 5 MG TABLETS PO SCH (23:22)
[2021-11-12] MEDS: THIAMINE HCL 100 MG TABLET (FP) PO SCH (23:22)
[2021-11-13] MEDS: hydrOXYzine PAMOATE 25 MG CAPSULE (FP) PO SCH ×5 (06:07→22:07)
[2021-11-13] MEDS ORDERED: methaDONE HCL 10 MG TABLET (FOR DETOX USE ONLY) ONE (08:21)
[2021-11-13 10:00] LABS: HEMATOCRIT 40.7 % (35.4-49); HEMOGLOBIN 13.3 GM/dL (11.7-16.9); MCH 26.4 pg (25.7-33.7); MCHC 32.6 g/dl (32.0-35.9); MEAN CELL VOLUME 80.9 fl (80-96); MEAN PLT VOLUME 8.9 fl (7.5-11.1); PLATELET COUNT 273 10^3/uL (134-434); RBC 5.03 M/mm3 (4.00-5.60); RDW 13.9 % (11.9-15.9); WHITE BLOOD COUNT 4.7 K/mm3 (4.0-10.0)
[2021-11-13 10:03] LABS: ALBUMIN 3.7 g/dl (3.4-5.0); BLOOD UREA NITROGEN 14.7 mg/dL (7-18)
[2021-11-13 10:05] LABS: CALCIUM 9.3 mg/dL (8.5-10.1)
[2021-11-13 10:06] LABS: CREATININE 1.3 mg/dL (0.55-1.3)
[2021-11-13 10:07] LABS: BILIRUBIN,TOTAL 0.3 mg/dL (0.2-1)
[2021-11-13 10:09] LABS: TOT PROT 7.5 g/dl (6.4-8.2)
[2021-11-13] MEDS: PRENATAL VITAMINS W/ FOLIC ACID TABLET (FP) PO SCH (10:30)
[2021-11-13] MEDS: NICOTINE 10 MG CARTRIDGE (INHALER) IH PRN ×2 (10:31→15:56)
[2021-11-13] MEDS: NICOTINE 14 MG/24 HOURS TOPICAL PATCH TD SCH (10:34)
[2021-11-13] MEDS: THIAMINE HCL 100 MG TABLET (FP) PO SCH (22:07)
[2021-11-13] MEDS: MELATONIN 5 MG TABLETS PO SCH (22:07)
[2021-11-13] MEDS: METHOCARBAMOL 500 MG TABLET PO PRN (22:08)
[2021-11-14] MEDS: hydrOXYzine PAMOATE 25 MG CAPSULE (FP) PO SCH ×5 (05:41→22:06)
[2021-11-14] MEDS ORDERED: methaDONE HCL 10 MG TABLET (FOR DETOX USE ONLY) PO ONE (10:00)
[2021-11-14] MEDS: NICOTINE 10 MG CARTRIDGE (INHALER) IH PRN ×4 (10:18→22:07)
[2021-11-14] MEDS: METHOCARBAMOL 500 MG TABLET PO PRN ×2 (10:18→22:08)
[2021-11-14] MEDS: NICOTINE 14 MG/24 HOURS TOPICAL PATCH TD SCH (10:19)
[2021-11-14] MEDS: PRENATAL VITAMINS W/ FOLIC ACID TABLET (FP) PO SCH (11:02)
[2021-11-14] MEDS ORDERED: PENICILLIN G BENZATHINE 2,400,000 UNIT/4 ML PFS IM ONE (15:30)
[2021-11-14 17:09] LABS: SARS-CoV-2 NAA Not Detected (Not Detected)
[2021-11-14] MEDS: MELATONIN 5 MG TABLETS PO SCH (22:06)
[2021-11-14] MEDS: THIAMINE HCL 100 MG TABLET (FP) PO SCH (23:08)
[2021-11-15] MEDS: hydrOXYzine PAMOATE 25 MG CAPSULE (FP) PO SCH ×5 (06:25→22:22)
[2021-11-15] MEDS ORDERED: methaDONE HCL 10 MG TABLET (FOR DETOX USE ONLY) ONE (08:35)
[2021-11-15] MEDS: PRENATAL VITAMINS W/ FOLIC ACID TABLET (FP) PO SCH (10:10)
[2021-11-15] MEDS: METHOCARBAMOL 500 MG TABLET PO PRN ×2 (10:10→17:56)
[2021-11-15] MEDS: NICOTINE 14 MG/24 HOURS TOPICAL PATCH TD SCH (10:10)
[2021-11-15] MEDS: NICOTINE 10 MG CARTRIDGE (INHALER) IH PRN ×2 (12:25→17:57)
[2021-11-15] MEDS: THIAMINE HCL 100 MG TABLET (FP) PO SCH (22:22)
[2021-11-15] MEDS: MELATONIN 5 MG TABLETS PO SCH (22:22)
[2021-11-16] MEDS: NICOTINE 10 MG CARTRIDGE (INHALER) IH PRN ×4 (01:00→22:21)
[2021-11-16] MEDS: hydrOXYzine PAMOATE 25 MG CAPSULE (FP) PO SCH ×5 (05:06→22:20)
[2021-11-16] MEDS ORDERED: methaDONE HCL 10 MG TABLET (FOR DETOX USE ONLY) PO ONE (10:00)
[2021-11-16] MEDS: PRENATAL VITAMINS W/ FOLIC ACID TABLET (FP) PO SCH (10:33)
[2021-11-16] MEDS: NICOTINE 14 MG/24 HOURS TOPICAL PATCH TD SCH (10:35)
[2021-11-16] MEDS: THIAMINE HCL 100 MG TABLET (FP) PO SCH (22:20)
[2021-11-16] MEDS: MELATONIN 5 MG TABLETS PO SCH (22:20)
[2021-11-16] MEDS: METHOCARBAMOL 500 MG TABLET PO PRN (22:21)
[2021-11-17] MEDS: hydrOXYzine PAMOATE 25 MG CAPSULE (FP) PO SCH ×2 (05:32→10:35)
[2021-11-17 09:33] VITALS: BP 119/57; PULSE 81; TEMP 98.4
[2021-11-17] MEDS: PRENATAL VITAMINS W/ FOLIC ACID TABLET (FP) PO SCH (10:34)
[2021-11-17] MEDS: METHOCARBAMOL 500 MG TABLET PO PRN (10:34)
[2021-11-17] MEDS: NICOTINE 14 MG/24 HOURS TOPICAL PATCH TD SCH (10:34)
== END 2021-11-17 12:06 | disposition other institution (70) | DRG 773 ==
LOC: YASAS 11:20 → Y3N 14:26
PROVIDERS: ADMIT Allergy & Immunology; ATTEND Surgery
PROC: HZ2ZZZZ Detoxification Services for Substance Abuse Treatment (ICD-10-PCS; principal; 2021-11-12)
DX: F11.23 Opioid dependence with withdrawal (principal); F10.230 Alcohol dependence with withdrawal, uncomplicated; F13.20 Sedative, hypnotic or anxiolytic dependence, uncomplicated; F14.20 Cocaine dependence, uncomplicated; F17.210 Nicotine dependence, cigarettes, uncomplicated; I10 Essential (primary) hypertension; G47.00 Insomnia, unspecified; M54.50 Low back pain, unspecified; G89.29 Other chronic pain; I25.2 Old myocardial infarction; Z86.19 Personal history of other infectious and parasitic diseases
CPT/HCPCS: 36415; 80053; 85027; 86593; 86780; 87811; C9803-CS; J0735; U0003; U0005

== ENCOUNTER 2022-06-02 11:35 | Inpatient (IN) | payer OTHER ==
[2022-06-02] MEDS ORDERED: MAGNESIUM HYDROX 2400MG/30ML ORAL SUSPENSION 30 ML CUP PO PRN (13:58)
[2022-06-02] MEDS ORDERED: guaiFENesin 200 MG/10 ML 10 ML UNIT-DOSE CUPS PO PRN (13:58)
[2022-06-02] MEDS ORDERED: ACETAMINOPHEN 325 MG TABLET (FP) PO PRN (13:58)
[2022-06-02] MEDS ORDERED: BENZOCAINE/MENTHOL (CHLORASEPTIC ) LOZENGE MM PRN (13:58)
[2022-06-02] MEDS ORDERED: hydrOXYzine PAMOATE 25 MG CAPSULE (FP) PO PRN (13:58)
[2022-06-02] MEDS ORDERED: POLYETHYLENE GLYCOL (HEALTHYLAX) 3350 17 GM PACKET PO PRN (13:58)
[2022-06-02] MEDS ORDERED: MAG HYDROX/AL HYDROX/SIMETH 30 ML UNIT-DOSE CUP PO PRN (13:58)
[2022-06-02] MEDS ORDERED: P-EPHED 60MG/TRIPROLIDI 2.5MG TABLET PO PRN (13:58)
[2022-06-02] MEDS ORDERED: IBUPROFEN 400 MG TABLET (FP) PO PRN (13:58)
[2022-06-02] MEDS ORDERED: LOPERAMIDE HCL 2 MG CAPSULE PO PRN (13:58)
[2022-06-02 14:30] VITALS: BMI 27.0
[2022-06-02] MEDS: NICOTINE 14 MG/24 HOURS TOPICAL PATCH TD SCH (15:16)
[2022-06-02] MEDS: PRENATAL VITAMINS W/ FOLIC ACID TABLET (FP) PO SCH (15:17)
[2022-06-02 15:22] VITALS: RESP 18
[2022-06-02] MEDS: THIAMINE HCL 100 MG TABLET (FP) PO SCH (21:08)
[2022-06-02] MEDS: MELATONIN 5 MG TABLETS PO SCH (21:08)
[2022-06-02] MEDS: NICOTINE 10 MG CARTRIDGE (INHALER) IH PRN (21:28)
[2022-06-02 21:42] LABS: URINE APPEARANCE CLEAR; URINE BILIRUBIN NEGATIVE (NEGATIVE); URINE COLOR YELLOW; URINE GLUCOSE (UA) NEGATIVE (NEGATIVE); URINE KETONE NEGATIVE (NEGATIVE); URINE LEUK ESTERASE NEGATIVE (NEGATIVE); URINE NITRITE NEGATIVE (NEGATIVE); URINE PROTEIN NEGATIVE (NEGATIVE); URINE UROBILINOGEN 0.2 mg/dL (0.2-1.0)
[2022-06-03 09:38] LABS: HEMATOCRIT 40.7 % (35.4-49); HEMOGLOBIN 13.2 GM/dL (11.7-16.9); MCH 26.6 pg (25.7-33.7); MCHC 32.4 g/dl (32.0-35.9); MEAN CELL VOLUME 82.1 fl (80-96); MEAN PLT VOLUME 8.1 fl (7.5-11.1); PLATELET COUNT 368 10^3/uL (134-434); RBC 4.95 M/mm3 (4.00-5.60); RDW 15.6 % (11.9-15.9); WHITE BLOOD COUNT 5.5 K/mm3 (4.0-10.0)
[2022-06-03 10:02] LABS: ALBUMIN 3.2 g/dl (3.4-5.0); BLOOD UREA NITROGEN 13.8 mg/dL (7-18); CALCIUM 9.1 mg/dL (8.5-10.1)
[2022-06-03 10:07] LABS: BILIRUBIN,TOTAL 0.5 mg/dL (0.2-1); TOT PROT 6.6 g/dl (6.4-8.2)
[2022-06-03] MEDS: NICOTINE 14 MG/24 HOURS TOPICAL PATCH TD SCH (10:17)
[2022-06-03] MEDS: PRENATAL VITAMINS W/ FOLIC ACID TABLET (FP) PO SCH (10:17)
[2022-06-03 11:41] LABS: SYPHILIS W/ RPR CONF REACTIVE (NONREACTIVE)
[2022-06-03] MEDS ORDERED: COLLOIDAL OATMEAL 1 BAR EACH TP PRN (11:56)
[2022-06-03] MEDS ORDERED: NICOTINE 14 MG/24 HOURS TOPICAL PATCH TD PRN (11:57)
[2022-06-03] MEDS ORDERED: PRENATAL VITAMINS W/ FOLIC ACID TABLET (FP) PO PRN (11:58)
[2022-06-03] MEDS: LACTULOSE 20 GM/30 ML UDC (FOR ORAL USE ONLY) PO SCH ×2 (13:46→21:20)
[2022-06-03] MEDS: MELATONIN 5 MG TABLETS PO SCH (21:20)
[2022-06-03] MEDS: THIAMINE HCL 100 MG TABLET (FP) PO SCH (21:20)
[2022-06-04] MEDS: LACTULOSE 20 GM/30 ML UDC (FOR ORAL USE ONLY) PO SCH ×3 (06:33→21:17)
[2022-06-04] MEDS: MELATONIN 5 MG TABLETS PO SCH (21:15)
[2022-06-04] MEDS: THIAMINE HCL 100 MG TABLET (FP) PO SCH (21:16)
[2022-06-04] MEDS: NICOTINE 10 MG CARTRIDGE (INHALER) IH PRN (21:16)
[2022-06-05] MEDS: LACTULOSE 20 GM/30 ML UDC (FOR ORAL USE ONLY) PO SCH (06:44)
[2022-06-05 07:10] VITALS: BP 120/75; PULSE 78; TEMP 97.8
== END 2022-06-05 08:35 | disposition left against medical advice (07) | DRG 770 ==
LOC: YASAS 11:35 → Y3W 14:20
PROVIDERS: ADMIT Allergy & Immunology; ATTEND Psychiatry & Neurology Pain Medicine
PROC: HZ42ZZZ Group Counseling for Substance Abuse Treatment, Cognitive-Behavioral (ICD-10-PCS; principal; 2022-06-02)
DX: F10.20 Alcohol dependence, uncomplicated (principal); F11.20 Opioid dependence, uncomplicated; F14.20 Cocaine dependence, uncomplicated; F17.210 Nicotine dependence, cigarettes, uncomplicated; F19.282 Other psychoactive substance dependence with psychoactive substance-induced sleep disorder; F19.24 Other psychoactive substance dependence with psychoactive substance-induced mood disorder; F41.9 Anxiety disorder, unspecified; F32.A Depression, unspecified; E72.20 Disorder of urea cycle metabolism, unspecified; G47.00 Insomnia, unspecified; I10 Essential (primary) hypertension; R76.8 Other specified abnormal immunological findings in serum; I25.2 Old myocardial infarction; Z59.02 Unsheltered homelessness
CPT/HCPCS: 36415; 80053; 81003; 82140; 85027; 86593; 86780; 86803; 87811

== ENCOUNTER 2022-10-10 08:38 | Inpatient (IN) | payer OTHER ==
[2022-10-10 09:21] VITALS: BMI 23.6
[2022-10-10] MEDS ORDERED: LOPERAMIDE HCL 2 MG CAPSULE PO PRN (09:46)
[2022-10-10] MEDS ORDERED: ACETAMINOPHEN 325 MG TABLET (FP) PO PRN (09:46)
[2022-10-10] MEDS ORDERED: MAGNESIUM HYDROX 2400MG/30ML ORAL SUSPENSION 30 ML CUP PO PRN (09:46)
[2022-10-10] MEDS ORDERED: BENZOCAINE/MENTHOL (CHLORASEPTIC ) LOZENGE MM PRN (09:46)
[2022-10-10] MEDS ORDERED: BENZONATATE 200 MG CAPSULE PO PRN (09:46)
[2022-10-10] MEDS ORDERED: IBUPROFEN 400 MG TABLET (FP) PO PRN (09:46)
[2022-10-10] MEDS ORDERED: NICOTINE 10 MG CARTRIDGE (INHALER) IH PRN (09:46)
[2022-10-10] MEDS ORDERED: NALOXONE HCL (KLOXXADO) 8 MG SPRAY NS PRN (09:46)
[2022-10-10] MEDS ORDERED: guaiFENesin 600 MG TABLET.ER (FP) PO PRN (09:46)
[2022-10-10] MEDS ORDERED: MAG HYDROX/AL HYDROX/SIMETH 30 ML UNIT-DOSE CUP PO PRN (09:46)
[2022-10-10] MEDS ORDERED: ONDANSETRON *ODT* 4 MG TABLET SL PRN (09:46)
[2022-10-10] MEDS ORDERED: BISMUTH SUBSALICYLATE 524 MG/30 ML PO PRN (09:46)
[2022-10-10] MEDS ORDERED: NALOXONE HCL 0.4 MG/ML VIAL IM PRN (09:46)
[2022-10-10] MEDS ORDERED: IBUPROFEN 600 MG TABLET (FP) PO PRN (09:46)
[2022-10-10] MEDS ORDERED: POLYETHYLENE GLYCOL (HEALTHYLAX) 3350 17 GM PACKET PO PRN (09:46)
[2022-10-10] MEDS ORDERED: chlordiazePOXIDE HCL 25 MG CAPSULE PO PRN (09:46)
[2022-10-10] MEDS ORDERED: DICYCLOMINE HCL 10 MG CAPSULE PO PRN (09:46)
[2022-10-10] MEDS ORDERED: chlordiazePOXIDE HCL 25 MG CAPSULE ONE (11:56)
[2022-10-10] MEDS ORDERED: PRENATAL VITAMINS W/ FOLIC ACID TABLET (FP) PO ONE (11:57)
[2022-10-10] MEDS: PRENATAL VITAMINS W/ FOLIC ACID TABLET (FP) PO SCH (12:00)
[2022-10-10] MEDS ORDERED: chlordiazePOXIDE HCL 25 MG CAPSULE PO ONE (12:00)
[2022-10-10] MEDS: chlordiazePOXIDE HCL 25 MG CAPSULE PO SCH ×2 (17:48→22:43)
[2022-10-10] MEDS ORDERED: MELATONIN 5 MG TABLETS PO SCH (22:00)
[2022-10-10] MEDS ORDERED: QUEtiapine FUMARATE 100 MG TABLET (FP) PO SCH (22:00)
[2022-10-10] MEDS: THIAMINE HCL 100 MG TABLET (FP) PO SCH (22:43)
[2022-10-11] MEDS: chlordiazePOXIDE HCL 25 MG CAPSULE PO SCH ×4 (06:00→22:33)
[2022-10-11] MEDS: PRENATAL VITAMINS W/ FOLIC ACID TABLET (FP) PO SCH (11:08)
[2022-10-11 12:15] LABS: HEMATOCRIT 37.5 % (35.4-49); HEMOGLOBIN 12.3 GM/dL (11.7-16.9); MCH 26.2 pg (25.7-33.7); MCHC 32.9 g/dl (32.0-35.9); MEAN CELL VOLUME 79.8 fl (80-96); MEAN PLT VOLUME 7.9 fl (7.5-11.1); PLATELET COUNT 447 10^3/uL (134-434); RDW 15.2 % (11.9-15.9); WHITE BLOOD COUNT 4.8 K/mm3 (4.0-10.0)
[2022-10-11 12:37] LABS: CALCIUM 8.5 mg/dL (8.5-10.1)
[2022-10-11 12:38] LABS: ALBUMIN 2.7 g/dl (3.4-5.0); BLOOD UREA NITROGEN 9.2 mg/dL (7-18)
[2022-10-11 12:41] LABS: BILIRUBIN,TOTAL 0.5 mg/dL (0.2-1); TOT PROT 6.3 g/dl (6.4-8.2)
[2022-10-11] MEDS: QUEtiapine FUMARATE 100 MG TABLET (FP) PO PRN (22:33)
[2022-10-11] MEDS: THIAMINE HCL 100 MG TABLET (FP) PO SCH (22:33)
[2022-10-12] MEDS: chlordiazePOXIDE HCL 25 MG CAPSULE PO SCH ×4 (05:24→22:23)
[2022-10-12] MEDS: PRENATAL VITAMINS W/ FOLIC ACID TABLET (FP) PO SCH (10:26)
[2022-10-12] MEDS: THIAMINE HCL 100 MG TABLET (FP) PO SCH (22:23)
[2022-10-12] MEDS: QUEtiapine FUMARATE 100 MG TABLET (FP) PO PRN (22:23)
[2022-10-13] MEDS ORDERED: chlordiazePOXIDE HCL 10 MG CAPSULE PO PRN
[2022-10-13] MEDS: chlordiazePOXIDE HCL 10 MG CAPSULE PO SCH ×4 (05:40→22:24)
[2022-10-13] MEDS: PRENATAL VITAMINS W/ FOLIC ACID TABLET (FP) PO SCH (10:20)
[2022-10-13] MEDS: THIAMINE HCL 100 MG TABLET (FP) PO SCH (22:23)
[2022-10-13] MEDS: QUEtiapine FUMARATE 100 MG TABLET (FP) PO PRN (22:24)
[2022-10-14] MEDS: chlordiazePOXIDE HCL 10 MG CAPSULE PO SCH ×2 (05:58→17:53)
[2022-10-14] MEDS: PRENATAL VITAMINS W/ FOLIC ACID TABLET (FP) PO SCH (10:37)
[2022-10-14] MEDS: THIAMINE HCL 100 MG TABLET (FP) PO SCH (22:19)
[2022-10-14] MEDS: QUEtiapine FUMARATE 100 MG TABLET (FP) PO PRN (22:19)
[2022-10-15] MEDS ORDERED: chlordiazePOXIDE HCL 10 MG CAPSULE PO ONE (05:00)
[2022-10-15 09:53] VITALS: BP 118/60; PULSE 86; RESP 16; TEMP 98.9
[2022-10-15] MEDS: PRENATAL VITAMINS W/ FOLIC ACID TABLET (FP) PO SCH (10:48)
== END 2022-10-15 13:08 | disposition other institution (70) | DRG 773 ==
LOC: YASAS 08:38 → Y3N 11:19
PROVIDERS: ADMIT Allergy & Immunology; ATTEND Surgery
PROC: HZ2ZZZZ Detoxification Services for Substance Abuse Treatment (ICD-10-PCS; principal; 2022-10-10)
DX: F10.230 Alcohol dependence with withdrawal, uncomplicated (principal); F11.20 Opioid dependence, uncomplicated; F14.20 Cocaine dependence, uncomplicated; F15.20 Other stimulant dependence, uncomplicated; F12.20 Cannabis dependence, uncomplicated; F17.210 Nicotine dependence, cigarettes, uncomplicated; F19.24 Other psychoactive substance dependence with psychoactive substance-induced mood disorder; E46 Unspecified protein-calorie malnutrition; D75.839 Thrombocytosis, unspecified; I10 Essential (primary) hypertension; I25.2 Old myocardial infarction; M17.0 Bilateral primary osteoarthritis of knee; R76.8 Other specified abnormal immunological findings in serum; Z86.19 Personal history of other infectious and parasitic diseases; Z56.0 Unemployment, unspecified; Z59.00 Homelessness unspecified
CPT/HCPCS: 36415; 80053; 85027; 86593; 86780; 87811; C9803-CS; U0003; U0005

== ENCOUNTER 2022-10-15 13:12 | Inpatient (IN) | payer OTHER ==
[2022-10-15] MEDS ORDERED: MAG HYDROX/AL HYDROX/SIMETH 30 ML UNIT-DOSE CUP PO PRN (14:01)
[2022-10-15] MEDS ORDERED: ACETAMINOPHEN 325 MG TABLET (FP) PO PRN (14:01)
[2022-10-15] MEDS ORDERED: NALOXONE HCL (KLOXXADO) 8 MG SPRAY NS PRN (14:01)
[2022-10-15] MEDS ORDERED: NICOTINE 10 MG CARTRIDGE (INHALER) IH PRN (14:01)
[2022-10-15] MEDS ORDERED: NALOXONE HCL 0.4 MG/ML VIAL IVPUSH PRN (14:01)
[2022-10-15] MEDS ORDERED: BENZONATATE 200 MG CAPSULE PO PRN (14:01)
[2022-10-15] MEDS ORDERED: MAGNESIUM HYDROX 2400MG/30ML ORAL SUSPENSION 30 ML CUP PO PRN (14:01)
[2022-10-15] MEDS ORDERED: IBUPROFEN 400 MG TABLET (FP) PO PRN (14:01)
[2022-10-15] MEDS ORDERED: POLYETHYLENE GLYCOL (HEALTHYLAX) 3350 17 GM PACKET PO PRN (14:01)
[2022-10-15] MEDS ORDERED: guaiFENesin 600 MG TABLET.ER (FP) PO PRN (14:01)
[2022-10-15] MEDS ORDERED: BENZOCAINE/MENTHOL (CHLORASEPTIC ) LOZENGE MM PRN (14:01)
[2022-10-15] MEDS ORDERED: LOPERAMIDE HCL 2 MG CAPSULE PO PRN (14:01)
[2022-10-15] MEDS: THIAMINE HCL 100 MG TABLET (FP) PO SCH (21:32)
[2022-10-15] MEDS: QUEtiapine FUMARATE 100 MG TABLET (FP) PO SCH (21:32)
[2022-10-15] MEDS: MELATONIN 5 MG TABLETS PO SCH (21:32)
[2022-10-16] MEDS: PRENATAL VITAMINS W/ FOLIC ACID TABLET (FP) PO SCH (11:48)
[2022-10-16] MEDS: hydrOXYzine PAMOATE 25 MG CAPSULE (FP) PO PRN (21:03)
[2022-10-16] MEDS: QUEtiapine FUMARATE 100 MG TABLET (FP) PO SCH (21:03)
[2022-10-16] MEDS: MELATONIN 5 MG TABLETS PO SCH (21:03)
[2022-10-16] MEDS: THIAMINE HCL 100 MG TABLET (FP) PO SCH (21:03)
[2022-10-16] MEDS: METHOCARBAMOL 500 MG TABLET PO PRN (21:04)
[2022-10-17] MEDS: PRENATAL VITAMINS W/ FOLIC ACID TABLET (FP) PO SCH (10:01)
[2022-10-17] MEDS ORDERED: METHYL SALICYLATE/MENTHOL OINT 30 GM TUBE TP PRN (10:18)
[2022-10-17] MEDS: THIAMINE HCL 100 MG TABLET (FP) PO SCH (21:24)
[2022-10-17] MEDS: MELATONIN 5 MG TABLETS PO SCH (21:24)
[2022-10-17] MEDS: QUEtiapine FUMARATE 100 MG TABLET (FP) PO SCH (21:25)
[2022-10-17] MEDS: METHOCARBAMOL 500 MG TABLET PO PRN (21:25)
[2022-10-18] MEDS: PRENATAL VITAMINS W/ FOLIC ACID TABLET (FP) PO SCH (10:47)
[2022-10-18] MEDS: IBUPROFEN 600 MG TABLET (FP) PO PRN (14:25)
[2022-10-18] MEDS: MELATONIN 5 MG TABLETS PO SCH (21:16)
[2022-10-18] MEDS: THIAMINE HCL 100 MG TABLET (FP) PO SCH (21:16)
[2022-10-18] MEDS: METHOCARBAMOL 500 MG TABLET PO PRN (21:16)
[2022-10-18] MEDS: QUEtiapine FUMARATE 100 MG TABLET (FP) PO SCH (21:16)
[2022-10-19] MEDS: PRENATAL VITAMINS W/ FOLIC ACID TABLET (FP) PO SCH (10:56)
[2022-10-19] MEDS: THIAMINE HCL 100 MG TABLET (FP) PO SCH (21:17)
[2022-10-19] MEDS: MELATONIN 5 MG TABLETS PO SCH (21:17)
[2022-10-19] MEDS: hydrOXYzine PAMOATE 25 MG CAPSULE (FP) PO PRN (21:18)
[2022-10-19] MEDS: METHOCARBAMOL 500 MG TABLET PO PRN (21:18)
[2022-10-19] MEDS: QUEtiapine FUMARATE 100 MG TABLET (FP) PO SCH (21:18)
[2022-10-20] MEDS: PRENATAL VITAMINS W/ FOLIC ACID TABLET (FP) PO SCH (10:19)
[2022-10-20] MEDS ORDERED: PRENATAL VITAMINS W/ FOLIC ACID TABLET (FP) PO PRN (11:41)
[2022-10-20] MEDS: MELATONIN 5 MG TABLETS PO SCH (21:26)
[2022-10-20] MEDS: QUEtiapine FUMARATE 100 MG TABLET (FP) PO SCH (21:26)
[2022-10-20] MEDS: hydrOXYzine PAMOATE 25 MG CAPSULE (FP) PO PRN (21:26)
[2022-10-20] MEDS: THIAMINE HCL 100 MG TABLET (FP) PO SCH (21:26)
[2022-10-20] MEDS: METHOCARBAMOL 500 MG TABLET PO PRN (21:27)
[2022-10-21] MEDS: QUEtiapine FUMARATE 100 MG TABLET (FP) PO SCH (21:36)
[2022-10-21] MEDS: MELATONIN 5 MG TABLETS PO SCH (21:36)
[2022-10-21] MEDS: THIAMINE HCL 100 MG TABLET (FP) PO SCH (21:36)
[2022-10-22] MEDS: MELATONIN 5 MG TABLETS PO SCH (21:32)
[2022-10-22] MEDS: QUEtiapine FUMARATE 100 MG TABLET (FP) PO SCH (21:32)
[2022-10-22] MEDS: THIAMINE HCL 100 MG TABLET (FP) PO SCH (21:32)
[2022-10-23 07:32] VITALS: RESP 18
[2022-10-23] MEDS: THIAMINE HCL 100 MG TABLET (FP) PO SCH (21:25)
[2022-10-23] MEDS: QUEtiapine FUMARATE 100 MG TABLET (FP) PO SCH (21:25)
[2022-10-23] MEDS: MELATONIN 5 MG TABLETS PO SCH (21:25)
[2022-10-24] MEDS: THIAMINE HCL 100 MG TABLET (FP) PO SCH (21:38)
[2022-10-24] MEDS: MELATONIN 5 MG TABLETS PO SCH (21:38)
[2022-10-24] MEDS: QUEtiapine FUMARATE 100 MG TABLET (FP) PO SCH (21:39)
[2022-10-25] MEDS: QUEtiapine FUMARATE 100 MG TABLET (FP) PO SCH (21:33)
[2022-10-25] MEDS: MELATONIN 5 MG TABLETS PO SCH (21:34)
[2022-10-25] MEDS: THIAMINE HCL 100 MG TABLET (FP) PO SCH (21:34)
[2022-10-26] MEDS: hydrOXYzine PAMOATE 25 MG CAPSULE (FP) PO PRN (07:38)
[2022-10-26] MEDS: THIAMINE HCL 100 MG TABLET (FP) PO SCH (21:28)
[2022-10-26] MEDS: QUEtiapine FUMARATE 100 MG TABLET (FP) PO SCH (21:28)
[2022-10-26] MEDS: MELATONIN 5 MG TABLETS PO SCH (21:28)
[2022-10-27] MEDS: IBUPROFEN 600 MG TABLET (FP) PO PRN ×2 (15:54→21:42)
[2022-10-27] MEDS: QUEtiapine FUMARATE 100 MG TABLET (FP) PO SCH (21:42)
[2022-10-27] MEDS: THIAMINE HCL 100 MG TABLET (FP) PO SCH (21:42)
[2022-10-27] MEDS: MELATONIN 5 MG TABLETS PO SCH (21:42)
[2022-10-28 07:18] VITALS: BP 101/70; PULSE 62; TEMP 97.1
== END 2022-10-28 10:12 | disposition home or self-care (01) | DRG 772 ==
LOC: YASAS 13:12 → Y3E 13:19
PROVIDERS: ADMIT Allergy & Immunology; ATTEND Psychiatry & Neurology Pain Medicine
PROC: HZ42ZZZ Group Counseling for Substance Abuse Treatment, Cognitive-Behavioral (ICD-10-PCS; principal; 2022-10-15)
DX: F11.20 Opioid dependence, uncomplicated (principal); F10.20 Alcohol dependence, uncomplicated; F14.20 Cocaine dependence, uncomplicated; F15.20 Other stimulant dependence, uncomplicated; F12.20 Cannabis dependence, uncomplicated; F17.210 Nicotine dependence, cigarettes, uncomplicated; F19.282 Other psychoactive substance dependence with psychoactive substance-induced sleep disorder; F19.24 Other psychoactive substance dependence with psychoactive substance-induced mood disorder; F41.9 Anxiety disorder, unspecified; F32.A Depression, unspecified; I10 Essential (primary) hypertension; I25.2 Old myocardial infarction; M17.0 Bilateral primary osteoarthritis of knee; Z86.73 Personal history of transient ischemic attack (TIA), and cerebral infarction without residual deficits; Z86.19 Personal history of other infectious and parasitic diseases